=== PATIENT | male | born 1960 | race Hispanic/Latino ===

== ENCOUNTER 2021-11-24 18:49 | Emergency (ER) | payer MEDICAID ==
[2021-11-24] MEDS ORDERED: oxyCODONE 5 MG TAB PO ONE (20:18)
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
[2021-11-25] MEDS ORDERED: oxyCODONE 5 MG TAB ONE (01:40)
[2021-11-25] MEDS: oxyCODONE 5 MG TAB PO SCH ×3 (06:35→15:28)
[2021-11-25 15:51] VITALS: BP 112/67
== END 2021-11-25 15:51 ==
LOC: ED 18:49
DX: S16.1XXA Strain of muscle, fascia and tendon at neck level, initial encounter (principal); F31.9 Bipolar disorder, unspecified; I10 Essential (primary) hypertension; M19.90 Unspecified osteoarthritis, unspecified site; Z96.89 Presence of other specified functional implants; Z98.890 Other specified postprocedural states; Z87.891 Personal history of nicotine dependence; Z20.822 Contact with and (suspected) exposure to COVID-19; Y09 Assault by unspecified means; Y93.89 Activity, other specified; Y92.89 Other specified places as the place of occurrence of the external cause; Y99.8 Other external cause status
CPT/HCPCS: 72125; 99284; U0003

== ENCOUNTER 2021-11-30 12:06 | Emergency (ER) | payer MEDICAID ==
[2021-11-30] MEDS ORDERED: HALOPERIDOL LACTATE 5 MG/1 ML INJ IM ONE (12:20)
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
[2021-11-30 13:04] LABS: Hematocrit 43.4 % (35.5-45.6); Mean Corpuscular HGB Conc 32 % (32-34); Mean Corpuscular Volume 95 fl (84-94); Platelet Count 212 K/mm3 (140-440); Red Blood Count 4.57 M/mm3 (3.65-5.03); Red Cell Distribution Width 14.5 % (13.2-15.2)
[2021-11-30 13:14] LABS: Blood Urea Nitrogen 5 mg/dL (9-20); Calcium 9.5 mg/dL (8.4-10.2); Hemolysis Index 5
[2021-11-30 13:16] LABS: BUN/Creatinine Ratio 10
[2021-11-30] MEDS ORDERED: POTASSIUM CHLORIDE ER 20 MEQ TAB PO ONE (13:21)
--- NOTE | 2021-11-30 13:37 | XRay Report ---
ABDOMEN SERIES WITH ONE VIEW CHEST INDICATION / CLINICAL INFORMATION: bilious vomiting. COMPARISON: None available. FINDINGS: TUBES / LINES: None. BOWEL GAS PATTERN: No significant abnormality. FREE AIR / EXTRALUMINAL GAS: None seen. ADDITIONAL FINDINGS: No significant additional findings. LUNGS: Visualized lungs show no significant abnormality. IMPRESSION: 1. No significant abnormality. Signer Name: Wilbert Cuadra MD Signed: 11/30/2021 1:32 PM Workstation Name: [id number]
[2021-11-30] MEDS ORDERED: KETOROLAC 30 MG/1 ML INJ IM ONE (13:56)
[2021-11-30 14:27] VITALS: BP 125/84
== END 2021-11-30 14:22 | disposition home or self-care (01) ==
LOC: ED 12:06
DX: R11.2 Nausea with vomiting, unspecified (principal); R19.7 Diarrhea, unspecified; G89.4 Chronic pain syndrome; I10 Essential (primary) hypertension; M19.90 Unspecified osteoarthritis, unspecified site; R56.9 Unspecified convulsions; Z79.899 Other long term (current) drug therapy; Z98.890 Other specified postprocedural states; Z87.891 Personal history of nicotine dependence
CPT/HCPCS: 36415; 74022; 80048; 85027; 96372; 99284; J1630; J1885

== ENCOUNTER 2022-06-23 14:08 | Emergency (ER) | payer MEDICAID, OTHER ==
--- NOTE | 2022-06-23 14:27 | Event Note ---
Date: 06/23/22 Medical screening examination note, EMS documentation not available at time of chart dictation Verbal report received from emergency medical services. Patient is a 61-year-old gentleman, with a recent diagnosis of COVID-19, chronic back pain, history of suspected polysubstance abuse, presenting to the department today with a complaint of chronic pain. He is moving 4 extremities. He is protecting his airway. EMS reports unremarkable vital signs in the field. Patient makes no endorsement of homicidality or suicidality. The patient states he cannot take Tylenol because it gives him "diarrhea", and reports that it exacerbates his underlying "colitis". The patient does not have active nausea and vomiting at this time. The patient does not have diarrhea at this time. Patient advised that natural history of COVID entails prolonged symptomatology. We will obtain appropriate laboratory studies, to exclude complications from COVID, detailed history and physical to be performed by oncoming provider. At the moment, patient awake, clinically sober, does not meet criteria for 1013 hold or involuntary confinement, and appears to be stable for waiting room, pending bed availability. Vital Signs 06/23/22 14:14 Temperature 97.8 F Pulse Rate 92 H Respiratory 17 Rate Blood Pressure 128/78 [Left] O2 Sat by Pulse 98 Oximetry
--- NOTE | 2022-06-23 16:22 | Emergency Department Report ---
ED General Adult HPI - General Chief complaint: Pain General Stated complaint: BODY PAIN Time Seen by Provider: 06/23/22 16:02 Source: EMS Mode of arrival: Stretcher Limitations: No Limitations - History of Present Illness Initial comments: Patient presents to the emergency department the chief complaint of suicidal ideations. The patient stated that he stepped into traffic in an attempt to kill himself. Patient has a prior history of suicide attempts. Patient states that he was recently on hospice and has been bridged over to palliative but fátima ng this transition all his medications have been discontinued including opioids and his psychiatric medications. Patient denies any chest pain, shortness breath, or headache. -: unknown Severity scale (0 -10): 0 Consistency: constant Improves with: none Worsens with: none Associated Symptoms: denies other symptoms Treatments Prior to Arrival: none - Related Data Home Medications Medication Instructions Recorded Confirmed Last Taken Oxycodone HCl [oxyCODONE] 20 mg PO Q6H PRN 11/13/21 06/23/22 Unknown fentaNYL [Fentanyl] 75 mg TRANSDERMA Q72HR 11/13/21 06/23/22 Unknown Previous Rx's Medication Instructions Recorded Last Taken Type ARIPiprazole 5 mg PO QDAY 30 Days #30 tablet 11/17/21 Unknown Rx DULoxetine [Cymbalta] 60 mg PO BID 30 Days #60 capsule 11/17/21 Unknown Rx Gabapentin 600 mg PO Q8HR 30 Days #60 capsule 11/17/21 Unknown Rx Melatonin [Melatonin 5MG TAB] 5 mg PO QHS PRN tablet 11/17/21 Unknown Rx Venlafaxine [Effexor] 75 mg PO QDAY 30 Days #30 tablet 11/17/21 Unknown Rx traZODone [Desyrel] 50 mg PO QHS 30 Days #30 tablet 11/17/21 Unknown Rx Ondansetron [Zofran ODT TAB] 8 mg PO QID PRN #20 tab.rapdis 11/30/21 Unknown Rx Allergies Allergy/AdvReac Type Severity Reaction Status Date / Time No Known Allergies Allergy Verified 11/25/21 09:35 ED Review of Systems ROS: Stated complaint: BODY PAIN Other details as noted in HPI Comment: All other systems reviewed and negative Constitutional: denies: chills, fever Eyes: denies: eye pain, eye discharge, vision change ENT: denies: ear pain, throat pain Respiratory: denies: cough, shortness of breath, wheezing Cardiovascular: denies: chest pain, palpitations Endocrine: no symptoms reported Gastrointestinal: denies: abdominal pain, nausea, diarrhea Genitourinary: denies: urgency, dysuria Musculoskeletal: denies: back pain, joint swelling, arthralgia Skin: denies: rash, lesions Neurological: denies: headache, weakness, paresthesias Psychiatric: suicidal thoughts. denies: anxiety, depression Hematological/Lymphatic: denies: easy bleeding, easy bruising ED Past Medical Hx - Past Medical History Previous Medical History?: Yes Hx Hypertension: Yes Hx Congestive Heart Failure: No Hx Diabetes: No Hx Liver Disease: Yes (hepatitis c) Hx Arthritis: Yes Hx Seizures: Yes Hx Psychiatric Treatment: Yes ([facility] hospitalizations at [facility]) Hx Asthma: No Hx COPD: No Additional medical history: bradycardia. chronic pain. concussion. bladder emptying issues. bronchitis - Surgical History Past Surgical History?: Yes Hx Pacemaker: Yes Additional Surgical History: right knee and ankle surgery. bacterial infection throat sgx [place]. - Social History Smoking Status: Former Smoker Substance Use Type: None - Medications Home Medications: Home Medications Medication Instructions Recorded Confirmed Last Taken Type Oxycodone HCl [oxyCODONE] 20 mg PO Q6H PRN 11/13/21 06/23/22 Unknown History fentaNYL [Fentanyl] 75 mg TRANSDERMA Q72HR 11/13/21 06/23/22 Unknown History ARIPiprazole 5 mg PO QDAY 30 Days #30 tablet 11/17/21 06/23/22 Unknown Rx DULoxetine [Cymbalta] 60 mg PO BID 30 Days #60 capsule 11/17/21 06/23/22 Unknown Rx Gabapentin 600 mg PO Q8HR 30 Days #60 capsule 11/17/21 06/23/22 Unknown Rx Melatonin [Melatonin 5MG TAB] 5 mg PO QHS PRN tablet 11/17/21 06/23/22 Unknown Rx Venlafaxine [Effexor] 75 mg PO QDAY 30 Days #30 tablet 11/17/21 06/23/22 Unknown Rx traZODone [Desyrel] 50 mg PO QHS 30 Days #30 tablet 11/17/21 06/23/22 Unknown Rx Ondansetron [Zofran ODT TAB] 8 mg PO QID PRN #20 tab.rapdis 11/30/21 06/23/22 Unknown Rx ED Physical Exam - General Limitations: No Limitations General appearance: alert, in no apparent distress - Head Head exam: Present: atraumatic, normocephalic - Eye Eye exam: Present: normal appearance, PERRL, EOMI - ENT ENT exam: Present: mucous membranes moist - Neck Neck exam: Present: normal inspection - Respiratory Respiratory exam: Present: normal lung sounds bilaterally. Absent: respiratory distress - Cardiovascular Cardiovascular Exam: Present: regular rate, normal rhythm. Absent: systolic murmur, diastolic murmur, rubs, gallop - GI/Abdominal GI/Abdominal exam: Present: soft, normal bowel sounds. Absent: distended, tenderness - Rectal Rectal exam: Present: deferred - Extremities Exam Extremities exam: Present: normal inspection - Back Exam Back exam: Present: normal inspection - Neurological Exam Neurological exam: Present: alert, oriented X3, CN II-XII intact. Absent: motor sensory deficit - Psychiatric Psychiatric exam: Present: normal affect, normal mood - Skin Skin exam: Present: warm, dry, intact, normal color. Absent: rash ED Course Vital Signs 06/23/22 06/23/22 14:14 16:42 Temperature 97.8 F Pulse Rate 92 H Respiratory 17 Rate Blood Pressure 128/78 [Left] O2 Sat by Pulse 98 99 Oximetry ED Medical Decision Making - Lab Data Result diagrams: 06/23/22 16:48 06/23/22 16:50 Lab Results 06/23/22 06/23/22 06/23/22 Range/Units 16:48 16:48 16:48 WBC 6.8 (4.5-11.0) K/mm3 RBC 3.96 (3.65-5.03) M/mm3 Hgb 13.0 (11.8-15.2) gm/dl Hct 38.2 (35.5-45.6) % MCV 96 H (84-94) fl MCH 33 H (28-32) pg MCHC 34 (32-34) % RDW 14.0 (13.2-15.2) % Plt Count 220 (140-440) K/mm3 Lymph % (Auto) 38.3 H (13.4-35.0) % [place] % (Auto) 9.8 H (0.0-7.3) % Eos % (Auto) 0.8 (0.0-4.3) % Baso % (Auto) 0.9 (0.0-1.8) % Lymph # (Auto) 2.6 (1.2-5.4) K/mm3 [place] # (Auto) 0.7 (0.0-0.8) K/mm3 Eos # (Auto) 0.1 (0.0-0.4) K/mm3 Baso # (Auto) 0.1 (0.0-0.1) K/mm3 Seg Neutrophils % 50.2 (40.0-70.0) % Seg Neutrophils # 3.4 (1.8-7.7) K/mm3 Sodium (137-145) mmol/L Potassium (3.6-5.0) mmol/L Chloride (98-107) mmol/L Carbon Dioxide (22-30) mmol/L Anion Gap mmol/L BUN (9-20) mg/dL Creatinine (0.8-1.3) mg/dL Estimated GFR ml/min BUN/Creatinine Ratio % Glucose (75-100) mg/dL Calcium (8.4-10.2) mg/dL Urine Color (Yellow) Urine Turbidity (Clear) Specific [place]icks[place] (Man) (1.003-1.030) Ur Protein (Man) (Negative) mg/dL Ur Ketones (Man) (Negative) Ur Nitrite (Man) (Negative) Ur Reducing Substances Urine Bilirubin (Man) (Negative) Urine Ictotest Leukocyte Esterase (Man) (Negative) Urine WBC (Auto) (0.0-6.0) /HPF Urine RBC (Auto) (0.0-6.0) /HPF U Epithel Cells (Auto) (0-13.0) /HPF Urine Bacteria (Auto) (Negative) /HPF Urine RBC (Manual) (Negative) Urine Mucus /HPF Salicylates < 0.3 L (2.8-20.0) mg/dL Urine Opiates Screen Urine Methadone Screen Acetaminophen 5.0 L (10.0-30.0) ug/mL Ur Barbiturates Screen Ur Phencyclidine Scrn Ur Amphetamines Screen U Benzodiazepines Scrn Urine Cocaine Screen U Marijuana (THC) Screen Drugs of Abuse Note 06/23/22 06/23/22 06/23/22 Range/Units 16:50 Unknown Unknown WBC (4.5-11.0) K/mm3 RBC (3.65-5.03) M/mm3 Hgb (11.8-15.2) gm/dl Hct (35.5-45.6) % MCV (84-94) fl MCH (28-32) pg MCHC (32-34) % RDW (13.2-15.2) % Plt Count (140-440) K/mm3 Lymph % (Auto) (13.4-35.0) % [place] % (Auto) (0.0-7.3) % Eos % (Auto) (0.0-4.3) % Baso % (Auto) (0.0-1.8) % Lymph # (Auto) (1.2-5.4) K/mm3 [place] # (Auto) (0.0-0.8) K/mm3 Eos # (Auto) (0.0-0.4) K/mm3 Baso # (Auto) (0.0-0.1) K/mm3 Seg Neutrophils % (40.0-70.0) % Seg Neutrophils # (1.8-7.7) K/mm3 Sodium 142 (137-145) mmol/L Potassium 3.2 L (3.6-5.0) mmol/L Chloride 106.6 (98-107) mmol/L Carbon Dioxide 22 (22-30) mmol/L Anion Gap 17 mmol/L BUN 4 L (9-20) mg/dL Creatinine 0.6 L (0.8-1.3) mg/dL Estimated GFR > 60 ml/min BUN/Creatinine Ratio 7 % Glucose 116 H (75-100) mg/dL Calcium 9.6 (8.4-10.2) mg/dL Urine Color Yellow (Yellow) Urine Turbidity Cloudy (Clear) Specific [place]icks[place] (Man) 1.020 (1.003-1.030) Ur Protein (Man) 1+ (Negative) mg/dL Ur Ketones (Man) Negative (Negative) Ur Nitrite (Man) Negative (Negative) Ur Reducing Substances Not Reportable Urine Bilirubin (Man) Negative (Negative) Urine Ictotest Not Reportable Leukocyte Esterase (Man) Trace (Negative) Urine WBC (Auto) 4.0 (0.0-6.0) /HPF Urine RBC (Auto) 2.0 (0.0-6.0) /HPF U Epithel Cells (Auto) < 1.0 (0-13.0) /HPF Urine Bacteria (Auto) 1+ (Negative) /HPF Urine RBC (Manual) Negative (Negative) Urine Mucus 3+ /HPF Salicylates (2.8-20.0) mg/dL Urine Opiates Screen Presumptive negative Urine Methadone Screen Presumptive negative Acetaminophen (10.0-30.0) ug/mL Ur Barbiturates Screen Presumptive negative Ur Phencyclidine Scrn Presumptive negative Ur Amphetamines Screen Presumptive negative U Benzodiazepines Scrn Presumptive negative Urine Cocaine Screen Presumptive negative U Marijuana (THC) Screen Presumptive negative Drugs of Abuse Note Disclamer - Medical Decision Making 1013 applied Mental health evaluation done Patient will be seen by psych in the morning Critical care attestation.: If time is entered above; I have spent that time in minutes in the direct care of this critically ill patient, excluding procedure time. ED Disposition Clinical Impression: Suicidal ideations Disposition: [address] [place] [address] Is pt being admited?: No Does the pt Need Aspirin: No Condition: Stable Referrals: PRIMARY CARE, [Primary Care Provider] - 3-5 Days [facility] [Outside] - 3-5 Days
[2022-06-23 17:22] LABS: Basophils # (Auto) 0.1 K/mm3 (0.0-0.1); Basophils % (Auto) 0.9 % (0.0-1.8); Eosinophils # (Auto) 0.1 K/mm3 (0.0-0.4); Eosinophils % (Auto) 0.8 % (0.0-4.3); Hematocrit 38.2 % (35.5-45.6); Lymphocytes # (Auto) 2.6 K/mm3 (1.2-5.4); Lymphocytes % (Auto) 38.3 % (13.4-35.0); Mean Corpuscular HGB Conc 34 % (32-34); Mean Corpuscular Volume 96 fl (84-94); Monocytes # (Auto) 0.7 K/mm3 (0.0-0.8); Monocytes % (Auto) 9.8 % (0.0-7.3); Platelet Count 220 K/mm3 (140-440); Red Blood Count 3.96 M/mm3 (3.65-5.03)
[2022-06-23 17:38] LABS: Bacteria,Urine 1+ /HPF (Negative); Mucus,Urine 3+ /HPF
[2022-06-23 17:40] LABS: Color,Urine Yellow (Yellow)
[2022-06-23 17:45] LABS: Amphetamine Screen,Urine PRESUMPTIVE NEGATIVE; Benzodiazepines Screen,Urine PRESUMPTIVE NEGATIVE; Cannabinoid Screen,Urine PRESUMPTIVE NEGATIVE; Cocaine Screen,Urine PRESUMPTIVE NEGATIVE; Methadone Screen,Urine PRESUMPTIVE NEGATIVE; Opiate Screen,Urine PRESUMPTIVE NEGATIVE
[2022-06-23 17:47] LABS: BUN/Creatinine Ratio 7; Blood Urea Nitrogen 4 mg/dL (9-20); Calcium 9.6 mg/dL (8.4-10.2); Hemolysis Index 6
[2022-06-23] MEDS ORDERED: LORazepam 1 MG TAB PO ONE (19:00)
[2022-06-23] MEDS ORDERED: GABAPENTIN 300 MG CAP PO ONE (21:01)
[2022-06-24 08:38] VITALS: BP 114/68
[2022-06-24] MEDS ORDERED: MELATONIN 5 MG TAB PO PRN (11:20)
--- NOTE | 2022-06-24 11:20 | Consultation ---
History of Present Illness - Reason for Consult Consult date: 06/24/22 Reason for consult: depression, suicidal thoughts - History of Present Psychiatric Illness The patient was seen today. He is from a local shelter. The patient says he is depressed and feeling suicidal. He says he's been off his zoloft. The patient says he has a plan to cut himself and open his veins with a razor blade. The patient says he is in chronic pain.. PAST PSYCHIATRIC HISTORY: Diagnoses: Bipolar, schizophrenia, anxiety Suicide attempts or Self-harm behavior: Yes Prior psychiatric hospitalizations: Yes Substance Abuse history: Denies Previous psychiatric medications tried: zoloft Outpatient treatment: yes PAST MEDICAL HISTORY: unknown Family Psychiatric History: None reported or documented SOCIAL HISTORY Marital Status: Living Arrangements: [employer] living Employment Status: Retired Education: History of Abuse:denies Legal History: Denies REVIEW OF SYSTEMS Constitutional: Negative for weight loss ENT: Negative for stridor Respiratory: Negative for cough or hemoptysis All other systems reviewed and are negative MENTAL STATUS EXAMINATION General Appearance and Behavior: Age appropriate, good hygiene, wearing appropriate clothes. polite, cooperative Cooperation: Cooperative Psychomotor Behavior: Psychomotor normal Mood: Depression Affect and affective range: Congruent with stated mood Thought Process: Illogical Thought Content: SI Speech: Normal Suicidal Ideation: Yes Homicidal Ideation: Denies Hallucinations: Packing Checker Delusions: None elicited Impulse Control: Limited Insight and Judgment: Limited insight and fair judgment Memory: Limited Attention: distracted Orientation: a/o x 3 Assessment (1) Bipolar Disorder Treatment Plan 1013 Restarted Zoloft 50mg po daily Restarted home meds Medical: per primary Sitter: Defer to primary Disposition: Recommend acute psychiatric inpatient treatment Will follow. Thanks Case staffed with Dr. Martin Medications and Allergies Allergies Allergy/AdvReac Type Severity Reaction Status Date / Time No Known Allergies Allergy Verified 11/25/21 09:35 Home Medications Medication Instructions Recorded Confirmed Last Taken Type Oxycodone HCl [oxyCODONE] 20 mg PO Q6H PRN 11/13/21 06/23/22 Unknown History fentaNYL [Fentanyl] 75 mg TRANSDERMA Q72HR 11/13/21 06/23/22 Unknown History ARIPiprazole 5 mg PO QDAY 30 Days #30 tablet 11/17/21 06/23/22 Unknown Rx DULoxetine [Cymbalta] 60 mg PO BID 30 Days #60 capsule 11/17/21 06/23/22 Unknown Rx Gabapentin 600 mg PO Q8HR 30 Days #60 capsule 11/17/21 06/23/22 Unknown Rx Melatonin [Melatonin 5MG TAB] 5 mg PO QHS PRN tablet 11/17/21 06/23/22 Unknown Rx Venlafaxine [Effexor] 75 mg PO QDAY 30 Days #30 tablet 11/17/21 06/23/22 Unknown Rx traZODone [Desyrel] 50 mg PO QHS 30 Days #30 tablet 11/17/21 06/23/22 Unknown Rx Ondansetron [Zofran ODT TAB] 8 mg PO QID PRN #20 tab.rapdis 11/30/21 06/23/22 Unknown Rx Mental Status Exam - Vital signs Last Vital Signs Temp 97.6 F 06/24/22 08:37 Pulse 74 06/24/22 08:37 Resp 16 06/24/22 08:37 BP 114/68 06/24/22 08:37 Pulse Ox 99 06/24/22 08:37 Results Result Diagrams: 06/23/22 16:48 06/23/22 16:50 Abnormal lab results 06/23/22 06/23/22 06/23/22 Range/Units 16:48 16:48 16:48 MCV 96 H (84-94) fl MCH 33 H (28-32) pg Lymph % (Auto) 38.3 H (13.4-35.0) % [place] % (Auto) 9.8 H (0.0-7.3) % Potassium (3.6-5.0) mmol/L BUN (9-20) mg/dL Creatinine (0.8-1.3) mg/dL Glucose (75-100) mg/dL Salicylates < 0.3 L (2.8-20.0) mg/dL Acetaminophen 5.0 L (10.0-30.0) ug/mL 06/23/22 Range/Units 16:50 MCV (84-94) fl MCH (28-32) pg Lymph % (Auto) (13.4-35.0) % [place] % (Auto) (0.0-7.3) % Potassium 3.2 L (3.6-5.0) mmol/L BUN 4 L (9-20) mg/dL Creatinine 0.6 L (0.8-1.3) mg/dL Glucose 116 H (75-100) mg/dL Salicylates (2.8-20.0) mg/dL Acetaminophen (10.0-30.0) ug/mL All other labs normal.
[2022-06-24] MEDS ORDERED: DULoxetine 30 MG CAP PO SCH (12:00)
[2022-06-24] MEDS ORDERED: SERTRALINE 50 MG TAB PO SCH (12:00)
[2022-06-24] MEDS ORDERED: ARIPiprazole 5 MG TAB PO SCH (12:00)
[2022-06-24] MEDS ORDERED: GABAPENTIN 300 MG CAP PO SCH (14:00)
== END 2022-06-24 17:52 | disposition home or self-care (01) ==
LOC: ED 14:08 → EEVIPCON 14:08 → ED 06-24 17:52
DX: R45.851 Suicidal ideations (principal)
CPT/HCPCS: 36415; 80048; 80307; 80320; 81001; 85025; 99283; G0480; U0003

== ENCOUNTER 2022-06-24 17:02 | Inpatient (IN) | payer MEDICAID ==
--- NOTE | 2022-06-25 08:24 | History and Physical Report ---
GP History & Physical - History of Present Illness Date of admission: 06/25/22 Date of Examination: 06/25/22 Reason for Admission: Danger to self, Danger to others, Failure of Outpatient Treatment History of Present Illness: The patient is a 61 year old male with history of Depression, Anxiety, PTSD, and Insomnia who was admitted via the ED for suicidal ideation. The patient was seen today. He reports ongoing depression " I have been depressed all my life, I worry about my all the time." He states stressors such as "chronic pain and living situation." The patient states he is followed by hospice team. He states admits to having intermittent auditory hallucinations but denies suicidal/homicidal ideation and denies visual hallucinations. PAST PSYCHIATRIC HISTORY: Diagnoses: Depression, Anxiety, PTSD, Insomnia Suicide attempts or Self-harm behavior:Yes Prior psychiatric hospitalizations: Yes Substance Abuse history: marijuana Previous psychiatric medications tried: Unable to recall Outpatient treatment: Denies PAST MEDICAL HISTORY: Family Psychiatric History: None reported or documented SOCIAL HISTORY Marital Status: Living Arrangements: senior care Employment Status: Unemployed Access to guns/weapons: Denies Education: GED History of Abuse:Denies Legal History: Denies REVIEW OF SYSTEMS Constitutional: Negative for weight loss ENT: Negative for stridor Respiratory: Negative for cough or hemoptysis All other systems reviewed and are negative MENTAL STATUS EXAMINATION General Appearance and Behavior: Age appropriate, wearing appropriate clothes, cooperative, polite with questioning, good eye contact Cooperation: cooperative Psychomotor Behavior: Psychomotor normal Mood: depressed Affect and affective range: congruent with stated affect Thought Process: Goal directed Thought Content: Reality oriented Speech: Normal volume, Regular rate and rhythm Suicidal Ideation: Denies Homicidal Ideation: Denies Hallucination: Intermittent Auditory Delusions: None Impulse Control: Limited Insight and Judgment: Limited Memory: Intact Attention: attentive Orientation: Alert and oriented Diagnosis: Schizophrenia Disorder Treatment Plan Patient admitted for inpatient psychiatric evaluation, medication adjustment and close monitoring The patient's behavior, mood, sleep and appetite will be closely monitored. Patient enrolled in individual and group therapeutic sessions and encouraged to attend. Patient provided with a safe and structured environment. Patient's physical health needs will be addressed by the Hospitalist. Hospitalist Consulted Labs including CBC, CMP, Lipid profile and Hemoglobin A1C levels ordered for baseline reference Social Assessment will be completed and the Channel Rougher will work with patient and family to ensure a suitable and safe disposition Medication adjustment will be made as clinically indicated Continue home meds Usual Wellness Jain/Preservation: - Start Trazodone 50 mg po QHS & 50 mg po QHS PRN between 10 PM & 2 AM for insomnia - Start Melatonin 5 mg po QHS to promote circadian rhythm The patient agreed on the treatment plan, understood the risk, benefit, alternative treatment, potential consequence of no treatment, and gave informed consent. Estimated days: 7 Post hospital care: primary care provider, psychiatric provider Case staffed with Dr. Martin Legal Status: Voluntary Reaction to Hospitalization: Accepting Medications and Allergies Allergies Allergy/AdvReac Type Severity Reaction Status Date / Time No Known Allergies Allergy Verified 11/25/21 09:35 Home Medications Medication Instructions Recorded Confirmed Last Taken Type Oxycodone HCl [oxyCODONE] 20 mg PO Q6H PRN 11/13/21 06/23/22 Unknown History fentaNYL [Fentanyl] 75 mg TRANSDERMA Q72HR 11/13/21 06/23/22 Unknown History ARIPiprazole 5 mg PO QDAY 30 Days #30 tablet 11/17/21 06/23/22 Unknown Rx DULoxetine [Cymbalta] 60 mg PO BID 30 Days #60 capsule 11/17/21 06/23/22 Unknown Rx Gabapentin 600 mg PO Q8HR 30 Days #60 capsule 11/17/21 06/23/22 Unknown Rx Melatonin [Melatonin 5MG TAB] 5 mg PO QHS PRN tablet 11/17/21 06/23/22 Unknown Rx Venlafaxine [Effexor] 75 mg PO QDAY 30 Days #30 tablet 11/17/21 06/23/22 Unknown Rx traZODone [Desyrel] 50 mg PO QHS 30 Days #30 tablet 11/17/21 06/23/22 Unknown Rx Ondansetron [Zofran ODT TAB] 8 mg PO QID PRN #20 tab.rapdis 11/30/21 06/23/22 Unknown Rx Results - Results Labs/Vitals: Last Vital Signs Temp 98.7 F 06/24/22 20:21 Pulse 89 06/24/22 20:21 Resp 18 06/24/22 20:21 BP 122/87 06/24/22 20:21 Pulse Ox 95 06/24/22 20:21 Physical Examination - Constitutional Vitals: Vital Signs Temp Pulse Resp BP Pulse Ox 98.7 F 89 18 122/87 95 06/24/22 20:21 06/24/22 20:21 06/24/22 20:21 06/24/22 20:21 06/24/22 20:21 Temperature -Last 24 Hours Temperature 98.7 F Mental Status Exam - Vital signs Last Vital Signs Temp 98.7 F 06/24/22 20:21 Pulse 89 06/24/22 20:21 Resp 18 06/24/22 20:21 BP 122/87 06/24/22 20:21 Pulse Ox 95 06/24/22 20:21 Physician Certification - Certification Statement Physician Certification Statement: This is an acknowledgement statement that FERMIN SPENCE is a 61 year old M who requires inpatient psychiatric admission for treatment which could reasonably be expected to improve the patient's condition for Estimated period of time patient will need to remain in the hospital: [ ] Plan for post-hospital care: [ ]
--- NOTE | 2022-06-25 09:42 | Consultation ---
Medications and Allergies Allergies Allergy/AdvReac Type Severity Reaction Status Date / Time No Known Allergies Allergy Verified 11/25/21 09:35 Home Medications Medication Instructions Recorded Confirmed Last Taken Type Oxycodone HCl [oxyCODONE] 20 mg PO Q6H PRN 11/13/21 06/23/22 Unknown History fentaNYL [Fentanyl] 75 mg TRANSDERMA Q72HR 11/13/21 06/23/22 Unknown History ARIPiprazole 5 mg PO QDAY 30 Days #30 tablet 11/17/21 06/23/22 Unknown Rx DULoxetine [Cymbalta] 60 mg PO BID 30 Days #60 capsule 11/17/21 06/23/22 Unknown Rx Gabapentin 600 mg PO Q8HR 30 Days #60 capsule 11/17/21 06/23/22 Unknown Rx Melatonin [Melatonin 5MG TAB] 5 mg PO QHS PRN tablet 11/17/21 06/23/22 Unknown Rx Venlafaxine [Effexor] 75 mg PO QDAY 30 Days #30 tablet 11/17/21 06/23/22 Unknown Rx traZODone [Desyrel] 50 mg PO QHS 30 Days #30 tablet 11/17/21 06/23/22 Unknown Rx Ondansetron [Zofran ODT TAB] 8 mg PO QID PRN #20 tab.rapdis 11/30/21 06/23/22 Unknown Rx Exam - Constitutional Vitals: Temp Pulse Resp BP Pulse Ox 98.7 F 89 18 122/87 95 06/24/22 20:21 06/24/22 20:21 06/24/22 20:21 06/24/22 20:21 06/24/22 20:21
[2022-06-25] MEDS ORDERED: NON-FORMULARY EACH (Oxycodone Hcl [Oxycodone] 20 MG Tablet) PO PRN (09:43)
[2022-06-25 10:30] LABS: Basophils # (Auto) 0.1 K/mm3 (0.0-0.1); Basophils % (Auto) 1.1 % (0.0-1.8); Eosinophils # (Auto) 0.1 K/mm3 (0.0-0.4); Hematocrit 36.7 % (35.5-45.6); Hemoglobin 12.6 gm/dl (11.8-15.2); Lymphocytes % (Auto) 46.1 % (13.4-35.0); Mean Corpuscular HGB Conc 34 % (32-34); Mean Corpuscular Volume 94 fl (84-94); Monocytes # (Auto) 0.6 K/mm3 (0.0-0.8); Platelet Count 217 K/mm3 (140-440); Red Cell Distribution Width 14.5 % (13.2-15.2)
[2022-06-25 10:58] LABS: Alanine Aminotransferase 21 units/L (7-56); Albumin 4.2 g/dL (3.9-5); Blood Urea Nitrogen 7 mg/dL (9-20); Calcium 9.5 mg/dL (8.4-10.2); Chol/HDL Ratio 2.74 %; HDL Cholesterol 59 mg/dL (40-59); Hemolysis Index 6; LDL Cholesterol,Direct 95 mg/dL (50-130)
[2022-06-25 11:04] LABS: BUN/Creatinine Ratio 12
[2022-06-25] MEDS ORDERED: ARIPiprazole 5 MG TAB PO SCH (12:00)
[2022-06-25] MEDS ORDERED: DULoxetine 30 MG CAP PO SCH (12:00)
[2022-06-25] MEDS: GABAPENTIN 300 MG CAP PO SCH ×3 (12:52→21:00)
[2022-06-25] MEDS: oxyCODONE 5 MG TAB PO PRN ×2 (12:53→21:54)
--- NOTE | 2022-06-25 16:22 | Consultation ---
History of Present Illness - Reason for Consult Consult date: 06/25/22 Medical Management Requesting physician: GIANNA ASENCIO - History of Present Illness 61 YO Male with Vascular Dementia with Behavioral Disturbance, Cerebral Atherosclerosis, Bipolar Disorder, SSS S/P Pacemaker placement, CVA, CPS, Opioid Dependence, OA, Malnutrition admitted to [facility] for psychiatric stabilization. Consult placed by Dr. Asencio for medical management. Pt seen and evaluated in the recreation room. Patient denies fever, chills, chest pain, palpitation, productive cough, skin rash, recent ill contacts, or known exposure to COVID-19. No reported nursing events. Patient appears to be at baseline level of cognition and function. Past History Past Medical History: stroke, other (See HPI) Past Surgical History: Other (Pacemaker placement, back surgery) Social history: single. denies: smoking, alcohol abuse Family history: no significant family history, other (Reviewed) Past History Past Medical History: stroke, other (See HPI) Past Surgical History: Other (Pacemaker placement) Social history: single. denies: smoking, alcohol abuse Family history: hypertension Medications and Allergies Allergies Allergy/AdvReac Type Severity Reaction Status Date / Time No Known Allergies Allergy Verified 11/25/21 09:35 Home Medications Medication Instructions Recorded Confirmed Last Taken Type Oxycodone HCl [oxyCODONE] 20 mg PO Q6H PRN 11/13/21 06/26/22 Unknown History fentaNYL [Fentanyl] 75 mg TRANSDERMA Q72HR 11/13/21 06/26/22 Unknown History ARIPiprazole 5 mg PO QDAY 30 Days #30 tablet 11/17/21 06/26/22 Unknown Rx DULoxetine [Cymbalta] 60 mg PO BID 30 Days #60 capsule 11/17/21 06/26/22 Unknown Rx Gabapentin 600 mg PO Q8HR 30 Days #60 capsule 11/17/21 06/26/22 Unknown Rx Melatonin [Melatonin 5MG TAB] 5 mg PO QHS PRN tablet 11/17/21 06/26/22 Unknown Rx Venlafaxine [Effexor] 75 mg PO QDAY 30 Days #30 tablet 11/17/21 06/26/22 Unknown Rx traZODone [Desyrel] 50 mg PO QHS 30 Days #30 tablet 11/17/21 06/26/22 Unknown Rx Ondansetron [Zofran ODT TAB] 8 mg PO QID PRN #20 tab.rapdis 11/30/21 06/26/22 Unknown Rx Active Meds: Active Medications Aripiprazole (Aripiprazole 5 Mg Tab) 5 mg PO QDAY [facility] Last Admin: 06/25/22 12:53 Dose: 5 mg Gabapentin (Gabapentin 300 Mg Cap) 600 mg PO Q8HR [facility] Last Admin: 06/25/22 12:52 Dose: 600 mg Melatonin (Melatonin 5 Mg Tab) 5 mg PO QHS PRN PRN Reason: Sleep Oxycodone HCl (Oxycodone 5 Mg Tab) 20 mg PO Q6H PRN PRN Reason: Pain, Moderate (4-6) Last Admin: 06/25/22 12:53 Dose: 20 mg Trazodone HCl (Trazodone 50 Mg Tab) 50 mg PO QHS [facility] Review of Systems Constitutional: no weight loss, no weight gain, no fever, no chills Ears, nose, mouth and throat: no ear pain, no ear discharge, no decreased hearing, no nose pain, no nasal congestion, no sinus pressure Cardiovascular: no chest pain, no orthopnea, no palpitations, no edema, no lightheadedness Respiratory: no cough, no excessive sputum, no hemoptysis, no dyspnea on exer tion Gastrointestinal: no abdominal pain, no nausea, no vomiting, no change in bowel habits Genitourinary Male: no dysuria, no hematuria, no flank pain, no discharge, no urinary frequency, no urinary hesitancy Rectal: no pain, no incontinence, no bleeding Musculoskeletal: no neck stiffness, no shooting arm pain, no shooting leg pain Integumentary: no rash, no pruritis, no redness, no sores, no wounds Neurological: no head injury, no transient paralysis, no weakness Psychiatric: depression, irritability, mood swings Endocrine: no cold intolerance, no heat intolerance, no polydipsia, no flushing Hematologic/Lymphatic: no easy bruising Allergic/Immunologic: no anaphylaxis, no angioedema Exam - Constitutional Vitals: Temp Pulse Resp BP Pulse Ox 98.2 F 78 20 112/78 98 06/25/22 08:46 06/25/22 08:46 06/25/22 08:46 06/25/22 08:46 06/25/22 08:46 General appearance: Present: cachectic - EENT Eyes: Present: PERRL ENT: hearing intact, clear oral mucosa - Neck Neck: Present: supple, normal ROM - Respiratory Respiratory effort: normal Respiratory: bilateral: CTA - Cardiovascular Heart Sounds: Present: S1 & S2. Absent: rub, click - Extremities Extremities: pulses symmetrical, No edema Peripheral Pulses: within normal limits - Abdominal General gastrointestinal: Present: soft, non-tender, non-distended, normal bowel sounds Male genitourinary: Present: normal - Integumentary Integumentary: Present: clear, warm, dry - Musculoskeletal Musculoskeletal: gait normal, strength equal bilaterally - Psychiatric Psychiatric: appropriate mood/affect, intact judgment & insight - Neurologic Neurologic: CNII-XII intact, moves all extremities Results - Labs CBC & Chem 7: 06/24/22 10:25 06/24/22 10:25 Labs: Abnormal lab results 06/24/22 06/24/22 Range/Units 10:25 10:25 Lymph % (Auto) 46.1 H (13.4-35.0) % [place] % (Auto) 9.0 H (0.0-7.3) % Carbon Dioxide 19 L (22-30) mmol/L BUN 7 L (9-20) mg/dL Creatinine 0.6 L (0.8-1.3) mg/dL Glucose 107 H (75-100) mg/dL Total Protein 6.2 L (6.3-8.2) g/dL Assessment and Plan - Patient Problems (1) Bipolar disorder Current Visit: No Status: Acute Plan to address problem: Continue medical management, supportive care. (2) Chronic pain syndrome Current Visit: No Status: Acute Plan to address problem: Continue medical management, supportive care. Outpatient follow-up with pain management team. (3) Opioid dependence Current Visit: No Status: Acute Qualifiers: Complication of substance-induced condition: uncomplicated Plan to address problem: Continue medical management, neurochecks, pain control, supportive care. Verbal prompting, verbal redirection. (4) Osteoarthritis Current Visit: Yes Status: Acute Plan to address problem: Supportive care, continue medical management. NSAID therapy as clinically indicated. (5) Malnutrition Current Visit: Yes Status: Acute Qualifiers: Protein-calorie malnutrition severity: moderate Plan to address problem: Is increased protein intake, dietary supplementation. (6) Advance care planning Current Visit: No Status: Acute Plan to address problem: Disease education conducted, care plan discussed, diagnoses discussed, prognosis discussed, patient is full code. Patient acknowledges understanding and agreement with care plan, +30 minutes. (7) Preventative health care Current Visit: Yes Status: Acute Plan to address problem: Patient counseled regarding increase protein intake, dietary supplementation. Patient counseled regarding outpatient follow-up with primary care physician for all age and risk factor appropriate screening test. An outpatient follow-up with pain management service.
[2022-06-25] MEDS ORDERED: ONDANSETRON 8 MG ODT TAB PO PRN (16:26)
[2022-06-25] MEDS ORDERED: fentaNYL 12 MCG/HR PATCH 72HR TD SCH (17:00)
[2022-06-25] MEDS: traZODone 50 MG TAB PO SCH (21:00)
[2022-06-25] MEDS: MELATONIN 5 MG TAB PO PRN (21:00)
[2022-06-26] MEDS: oxyCODONE 5 MG TAB PO PRN ×3 (03:50→17:05)
[2022-06-26] MEDS: GABAPENTIN 300 MG CAP PO SCH ×3 (05:49→21:15)
--- NOTE | 2022-06-26 09:36 | Progress Note ---
Subjective Date of service: 06/26/22 Subjective Comment: 06/26: The patient was seen this morning. He continues to endorse depression and racing thoughts. The patient denies any current suicidal/homicidal ideation and denies hallucinations. REVIEW OF SYSTEMS Constitutional: Negative for weight loss ENT: Negative for stridor Respiratory: Negative for cough or hemoptysis All other systems reviewed and are negative MENTAL STATUS EXAMINATION General Appearance and Behavior: Age appropriate, wearing appropriate clothes, cooperative, polite with questioning, good eye contact Cooperation: cooperative Psychomotor Behavior: Psychomotor normal Mood: depressed Affect and affective range: congruent with stated affect Thought Process: racing thoughts Thought Content:Reality oriented Speech: Normal volume, Regular rate and rhythm Suicidal Ideation: Denies Homicidal Ideation: Denies Hallucination:Denies Delusions: None Impulse Control: Limited Insight and Judgment: Limited Memory: Intact Attention: attentive Orientation: Alert and oriented Diagnosis: Schizophrenia Disorder Treatment Plan Patient admitted for inpatient psychiatric evaluation, medication adjustment and close monitoring The patient's behavior, mood, sleep and appetite will be closely monitored. Patient enrolled in individual and group therapeutic sessions and encouraged to attend. Patient provided with a safe and structured environment. Patient's physical health needs will be addressed by the Hospitalist. Hospitalist Consulted Labs including CBC, CMP, Lipid profile and Hemoglobin A1C levels ordered for baseline reference Social Assessment will be completed and the Cash Posting Representative will work with patient and family to ensure a suitable and safe disposition Medication adjustment will be made as clinically indicated Continue home meds Increased Abilify to 10mg po daily Start Sertaline 25mg po daily Start Vistaril 25mg po Q6hs PRN Usual Wellness [employer]/Preservation: - Start Trazodone 50 mg po QHS & 50 mg po QHS PRN between 10 PM & 2 AM for insomnia - Start Melatonin 5 mg po QHS to promote circadian rhythm The patient agreed on the treatment plan, understood the risk, benefit, alternative treatment, potential consequence of no treatment, and gave informed consent. Estimated days: 7 Post hospital care: primary care provider, psychiatric provider Case staffed with Dr. Martin Legal Status: Voluntary Reaction to Hospitalization: Accepting Medications and Allergies Medications and Allergies Allergies Allergy/AdvReac Type Severity Reaction Status Date / Time No Known Allergies Allergy Verified 11/25/21 09:35 Home Medications Medication Instructions Recorded Confirmed Last Taken Type Oxycodone HCl [oxyCODONE] 20 mg PO Q6H PRN 11/13/21 06/26/22 Unknown History fentaNYL [Fentanyl] 75 mg TRANSDERMA Q72HR 11/13/21 06/26/22 Unknown History ARIPiprazole 5 mg PO QDAY 30 Days #30 tablet 11/17/21 06/26/22 Unknown Rx DULoxetine [Cymbalta] 60 mg PO BID 30 Days #60 capsule 11/17/21 06/26/22 Unknown Rx Gabapentin 600 mg PO Q8HR 30 Days #60 capsule 11/17/21 06/26/22 Unknown Rx Melatonin [Melatonin 5MG TAB] 5 mg PO QHS PRN tablet 11/17/21 06/26/22 Unknown Rx Venlafaxine [Effexor] 75 mg PO QDAY 30 Days #30 tablet 11/17/21 06/26/22 Unknown Rx traZODone [Desyrel] 50 mg PO QHS 30 Days #30 tablet 11/17/21 06/26/22 Unknown Rx Ondansetron [Zofran ODT TAB] 8 mg PO QID PRN #20 tab.rapdis 11/30/21 06/26/22 U nknown Rx Active Meds: Active Medications Aripiprazole (Aripiprazole 5 Mg Tab) 5 mg PO QDAY [facility] Last Admin: 06/25/22 12:53 Dose: 5 mg Fentanyl (Fentanyl 12 Mcg/Hr Patch 72hr) 1 applic TD Q72HR [facility] Gabapentin (Gabapentin 300 Mg Cap) 600 mg PO Q8HR [facility] Last Admin: 06/26/22 05:49 Dose: 600 mg Melatonin (Melatonin 5 Mg Tab) 5 mg PO QHS PRN PRN Reason: Sleep Last Admin: 06/25/22 21:00 Dose: 5 mg Ondansetron HCl (Ondansetron 8 Mg Odt Tab) 8 mg PO QID PRN PRN Reason: Nausea Oxycodone HCl (Oxycodone 5 Mg Tab) 20 mg PO Q6H PRN PRN Reason: Pain, Moderate (4-6) Last Admin: 06/26/22 03:50 Dose: 20 mg Trazodone HCl (Trazodone 50 Mg Tab) 50 mg PO QHS [facility] Last Admin: 06/25/22 21:00 Dose: 50 mg Results - Results Labs/Vitals: Laboratory Last Values WBC 6.5 K/mm3 (4.5-11.0) 06/24/22 10:25 RBC 3.90 M/mm3 (3.65-5.03) 06/24/22 10:25 Hgb 12.6 gm/dl (11.8-15.2) 06/24/22 10:25 Hct 36.7 % (35.5-45.6) 06/24/22 10:25 MCV 94 fl (84-94) 06/24/22 10:25 MCH 32 pg (28-32) 06/24/22 10:25 MCHC 34 % (32-34) 06/24/22 10:25 RDW 14.5 % (13.2-15.2) 06/24/22 10:25 Plt Count 217 K/mm3 (140-440) 06/24/22 10:25 Lymph % (Auto) 46.1 % (13.4-35.0) H 06/24/22 10:25 [place] % (Auto) 9.0 % (0.0-7.3) H 06/24/22 10:25 Eos % (Auto) 1.0 % (0.0-4.3) 06/24/22 10:25 Baso % (Auto) 1.1 % (0.0-1.8) 06/24/22 10:25 Lymph # (Auto) 3.0 K/mm3 (1.2-5.4) 06/24/22 10:25 [place] # (Auto) 0.6 K/mm3 (0.0-0.8) 06/24/22 10:25 Eos # (Auto) 0.1 K/mm3 (0.0-0.4) 06/24/22 10:25 Baso # (Auto) 0.1 K/mm3 (0.0-0.1) 06/24/22 10:25 Seg Neutrophils % 42.8 % (40.0-70.0) 06/24/22 10:25 Seg Neutrophils # 2.8 K/mm3 (1.8-7.7) 06/24/22 10:25 Sodium 139 mmol/L (137-145) 06/24/22 10:25 Potassium 3.6 mmol/L (3.6-5.0) 06/24/22 10:25 Chloride 106.0 mmol/L (98-107) 06/24/22 10:25 Carbon Dioxide 19 mmol/L (22-30) L 06/24/22 10:25 Anion Gap 18 mmol/L 06/24/22 10:25 BUN 7 mg/dL (9-20) L 06/24/22 10:25 Creatinine 0.6 mg/dL (0.8-1.3) L 06/24/22 10:25 Estimated GFR > 60 ml/min 06/24/22 10:25 BUN/Creatinine Ratio 12 % 06/24/22 10:25 Glucose 107 mg/dL (75-100) H 06/24/22 10:25 Hemoglobin A1c 4.9 % (4-6) 06/24/22 10:25 Calcium 9.5 mg/dL (8.4-10.2) 06/24/22 10:25 Total Bilirubin 0.40 mg/dL (0.1-1.2) 06/24/22 10:25 AST 14 units/L (5-40) 06/24/22 10:25 ALT 21 units/L (7-56) 06/24/22 10:25 Alkaline Phosphatase 66 units/L (35-129) 06/24/22 10:25 Troponin T < 0.010 ng/mL (0.00-0.029) 06/25/22 09:43 Total Protein 6.2 g/dL (6.3-8.2) L 06/24/22 10:25 Albumin 4.2 g/dL (3.9-5) 06/24/22 10:25 Albumin/Globulin Ratio 2.1 % 06/24/22 10:25 Triglycerides 63 mg/dL (2-149) 06/24/22 10:25 Cholesterol 162 mg/dL (50-199) 06/24/22 10:25 LDL Cholesterol Direct 95 mg/dL (50-130) 06/24/22 10:25 HDL Cholesterol 59 mg/dL (40-59) 06/24/22 10:25 Cholesterol/HDL Ratio 2.74 % 06/24/22 10:25 TSH 0.470 mlU/mL (0.270-4.200) 06/24/22 10:25 Last Vital Signs Temp 98.1 F 06/26/22 07:38 Pulse 64 06/26/22 07:38 Resp 16 06/26/22 07:38 BP 102/67 09/03/22 07:38 Pulse Ox 97 06/26/22 07:38
[2022-06-26] MEDS ORDERED: hydrOXYzine PAMOATE 25 MG CAP PO PRN (09:37)
[2022-06-26] MEDS: SERTRALINE 25 MG TAB PO SCH (09:54)
[2022-06-26] MEDS: ARIPiprazole 10 MG TAB PO SCH (09:54)
[2022-06-26] MEDS: MELATONIN 5 MG TAB PO PRN (21:15)
[2022-06-26] MEDS: traZODone 50 MG TAB PO SCH (21:15)
[2022-06-27] MEDS: oxyCODONE 5 MG TAB PO PRN ×4 (00:39→21:07)
[2022-06-27] MEDS: GABAPENTIN 300 MG CAP PO SCH ×3 (06:40→21:06)
--- NOTE | 2022-06-27 09:03 | Progress Note ---
Subjective Date of service: 06/27/22 Subjective Comment: 06/27:The patient was seen this morning. He states he is doing alright but continues to endorse depression. He reports sleep and appetite as good. The patient denies any current suicidal/homicidal ideation and denies hallucinations. 06/26: The patient was seen this morning. He continues to endorse depression and racing thoughts. The patient denies any current suicidal/homicidal ideation and denies hallucinations. REVIEW OF SYSTEMS Constitutional: Negative for weight loss ENT: Negative for stridor Respiratory: Negative for cough or hemoptysis All other systems reviewed and are negative MENTAL STATUS EXAMINATION General Appearance and Behavior: Age appropriate, wearing appropriate clothes, cooperative, polite with questioning, good eye contact Cooperation: cooperative Psychomotor Behavior: Psychomotor normal Mood: depressed Affect and affective range: congruent with stated affect Thought Process: racing thoughts Thought Content:Reality oriented Speech: Normal volume, Regular rate and rhythm Suicidal Ideation: Denies Homicidal Ideation: Denies Hallucination:Denies Delusions: None Impulse Control: Limited Insight and Judgment: Limited Memory: Intact Attention: attentive Orientation: Alert and oriented Diagnosis: Schizophrenia Disorder Treatment Plan Patient admitted for inpatient psychiatric evaluation, medication adjustment and close monitoring The patient's behavior, mood, sleep and appetite will be closely monitored. Patient enrolled in individual and group therapeutic sessions and encouraged to attend. Patient provided with a safe and structured environment. Patient's physical health needs will be addressed by the Hospitalist. Hospitalist Consulted Labs including CBC, CMP, Lipid profile and Hemoglobin A1C levels ordered for baseline reference Social Assessment will be completed and the Kettle Cook will work with patient and family to ensure a suitable and safe disposition Medication adjustment will be made as clinically indicated Continue home meds Increased Abilify to 10mg po daily Start Sertaline 25mg po daily Start Vistaril 25mg po Q6hs PRN Usual Wellness [place]/Preservation: - Start Trazodone 50 mg po QHS & 50 mg po QHS PRN between 10 PM & 2 AM for insomnia - Start Melatonin 5 mg po QHS to promote circadian rhythm The patient agreed on the treatment plan, understood the risk, benefit, alternative treatment, potential consequence of no treatment, and gave informed consent. Estimated days: 7 Post hospital care: primary care provider, psychiatric provider Case staffed with Dr. Martin Legal Status: Voluntary Reaction to Hospitalization: Accepting Medications and Allergies Medications and Allergies Allergies Allergy/AdvReac Type Severity Reaction Status Date / Time No Known Allergies Allergy Verified 11/25/21 09:35 Home Medications Medication Instructions Recorded Confirmed Last Taken Type Oxycodone HCl [oxyCODONE] 20 mg PO Q6H PRN 11/13/21 06/26/22 Unknown History fentaNYL [Fentanyl] 75 mg TRANSDERMA Q72HR 11/13/21 06/26/22 Unknown History ARIPiprazole 5 mg PO QDAY 30 Days #30 tablet 11/17/21 06/26/22 Unknown Rx DULoxetine [Cymbalta] 60 mg PO BID 30 Days #60 capsule 11/17/21 06/26/22 Unknown Rx Gabapentin 600 mg PO Q8HR 30 Days #60 capsule 11/17/21 06/26/22 Unknown Rx Melatonin [Melatonin 5MG TAB] 5 mg PO QHS PRN tablet 11/17/21 06/26/22 Unknown Rx Venlafaxine [Effexor] 75 mg PO QDAY 30 Days #30 tablet 11/17/21 06/26/22 Unknown Rx traZODone [Desyrel] 50 mg PO QHS 30 Days #30 tablet 11/17/21 06/26/22 Unknown Rx Ondansetron [Zofran ODT TAB] 8 mg PO QID PRN #20 tab.rapdis 11/30/21 06/26/22 Unknown Rx Active Meds: Active Medications Aripiprazole (Aripiprazole 10 Mg Tab) 10 mg PO QDAY [facility] Last Admin: 06/26/22 09:54 Dose: 10 mg Fentanyl (Fentanyl 12 Mcg/Hr Patch 72hr) 1 applic TD Q72HR [facility] Gabapentin (Gabapentin 300 Mg Cap) 600 mg PO Q8HR [facility] Last Admin: 06/27/22 06:40 Dose: 600 mg Hydroxyzine Pamoate (Hydroxyzine Pamoate 25 Mg Cap) 25 mg PO Q6H PRN PRN Reason: Anxiety Melatonin (Melatonin 5 Mg Tab) 5 mg PO QHS PRN PRN Reason: Sleep Last Admin: 06/26/22 21:15 Dose: 5 mg Ondansetron HCl (Ondansetron 8 Mg Odt Tab) 8 mg PO QID PRN PRN Reason: Nausea Oxycodone HCl (Oxycodone 5 Mg Tab) 20 mg PO Q6H PRN PRN Reason: Pain, Moderate (4-6) Last Admin: 06/27/22 00:39 Dose: 20 mg Sertraline HCl (Sertraline 25 Mg Tab) 25 mg PO QDAY [facility] Last Admin: 06/26/22 09:54 Dose: 25 mg Trazodone HCl (Trazodone 50 Mg Tab) 50 mg PO QHS [facility] Last Admin: 06/26/22 21:15 Dose: 50 mg Results - Results Labs/Vitals: Laboratory Last Values WBC 6.5 K/mm3 (4.5-11.0) 06/24/22 10:25 RBC 3.90 M/mm3 (3.65-5.03) 06/24/22 10:25 Hgb 12.6 gm/dl (11.8-15.2) 06/24/22 10:25 Hct 36.7 % (35.5-45.6) 06/24/22 10:25 MCV 94 fl (84-94) 06/24/22 10:25 MCH 32 pg (28-32) 06/24/22 10:25 MCHC 34 % (32-34) 06/24/22 10:25 RDW 14.5 % (13.2-15.2) 06/24/22 10:25 Plt Count 217 K/mm3 (140-440) 06/24/22 10:25 Lymph % (Auto) 46.1 % (13.4-35.0) H 06/24/22 10:25 [place] % (Auto) 9.0 % (0.0-7.3) H 06/24/22 10:25 Eos % (Auto) 1.0 % (0.0-4.3) 06/24/22 10:25 Baso % (Auto) 1.1 % (0.0-1.8) 06/24/22 10:25 Lymph # (Auto) 3.0 K/mm3 (1.2-5.4) 06/24/22 10:25 [place] # (Auto) 0.6 K/mm3 (0.0-0.8) 06/24/22 10:25 Eos # (Auto) 0.1 K/mm3 (0.0-0.4) 06/24/22 10:25 Baso # (Auto) 0.1 K/mm3 (0.0-0.1) 06/24/22 10:25 Seg Neutrophils % 42.8 % (40.0-70.0) 06/24/22 10:25 Seg Neutrophils # 2.8 K/mm3 (1.8-7.7) 06/24/22 10:25 Sodium 139 mmol/L (137-145) 06/24/22 10:25 Potassium 3.6 mmol/L (3.6-5.0) 06/24/22 10:25 Chloride 106.0 mmol/L (98-107) 06/24/22 10:25 Carbon Dioxide 19 mmol/L (22-30) L 06/24/22 10:25 Anion Gap 18 mmol/L 06/24/22 10:25 BUN 7 mg/dL (9-20) L 06/24/22 10:25 Creatinine 0.6 mg/dL (0.8-1.3) L 06/24/22 10:25 Estimated GFR > 60 ml/min 06/24/22 10:25 BUN/Creatinine Ratio 12 % 06/24/22 10:25 Glucose 107 mg/dL (75-100) H 06/24/22 10:25 Hemoglobin A1c 4.9 % (4-6) 06/24/22 10:25 Calcium 9.5 mg/dL (8.4-10.2) 06/24/22 10:25 Total Bilirubin 0.40 mg/dL (0.1-1.2) 06/24/22 10:25 AST 14 units/L (5-40) 06/24/22 10:25 ALT 21 units/L (7-56) 06/24/22 10:25 Alkaline Phosphatase 66 units/L (35-129) 06/24/22 10:25 Troponin T < 0.010 ng/mL (0.00-0.029) 06/25/22 09:43 Total Protein 6.2 g/dL (6.3-8.2) L 06/24/22 10:25 Albumin 4.2 g/dL (3.9-5) 06/24/22 10:25 Albumin/Globulin Ratio 2.1 % 06/24/22 10:25 Triglycerides 63 mg/dL (2-149) 06/24/22 10:25 Cholesterol 162 mg/dL (50-199) 06/24/22 10:25 LDL Cholesterol Direct 95 mg/dL (50-130) 06/24/22 10:25 HDL Cholesterol 59 mg/dL (40-59) 06/24/22 10:25 Cholesterol/HDL Ratio 2.74 % 06/24/22 10:25 TSH 0.470 mlU/mL (0.270-4.200) 06/24/22 10:25 Last Vital Signs Temp 98.1 F 06/26/22 07:38 Pulse 64 06/26/22 07:38 Resp 18 06/26/22 09:55 BP 102/67 06/26/22 07:38 Pulse Ox 97 06/26/22 07:38
[2022-06-27] MEDS: ARIPiprazole 10 MG TAB PO SCH (09:09)
[2022-06-27] MEDS: SERTRALINE 25 MG TAB PO SCH (09:11)
--- NOTE | 2022-06-27 18:23 | Progress Note ---
Assessment and Plan - Patient Problems (1) Bipolar disorder Current Visit: No Status: Acute Plan to address problem: Continue medical management, supportive care. (2) Chronic pain syndrome Current Visit: No Status: Acute Plan to address problem: Continue medical management, supportive care. Outpatient follow-up with pain management team. (3) Opioid dependence Current Visit: No Status: Acute Qualifiers: Complication of substance-induced condition: uncomplicated Plan to address problem: Continue medical management, neurochecks, pain control, supportive care. Verbal prompting, verbal redirection. (4) Osteoarthritis Current Visit: Yes Status: Acute Plan to address problem: Supportive care, continue medical management. NSAID therapy as clinically indicated. (5) Malnutrition Current Visit: Yes Status: Acute Qualifiers: Protein-calorie malnutrition severity: moderate Plan to address problem: Is increased protein intake, dietary supplementation. (6) Advance care planning Current Visit: No Status: Acute Plan to address problem: Disease education conducted, care plan discussed, diagnoses discussed, prognosis discussed, patient is full code. Patient acknowledges understanding and agreement with care plan, +30 minutes. (7) Preventative health care Current Visit: Yes Status: Acute Plan to address problem: Patient counseled regarding increase protein intake, dietary supplementation. Patient counseled regarding outpatient follow-up with primary care physician for all age and risk factor appropriate screening test. An outpatient follow-up with pain management service. History Interval history: 61 YO Male with Vascular Dementia with Behavioral Disturbance, Cerebral Atherosclerosis, Bipolar Disorder, SSS S/P Pacemaker placement, CVA, CPS, Opioid Dependence, OA, Malnutrition admitted to [facility] for psychiatric stabilization. Consult placed by Dr. Mills for medical management. Pt seen and evaluated in the recreation room. No reported nursing events. Patient appears to be at baseline level of cognition and function. Hospitalist Physical - Constitutional Vitals: Temp Pulse Resp BP Pulse Ox 98.1 F 64 18 102/67 97 06/26/22 07:38 06/26/22 07:38 06/26/22 09:55 06/26/22 07:38 06/26/22 07:38 General appearance: Present: cachectic - EENT Eyes: Present: PERRL ENT: hearing decreased - Neck Neck: Present: supple - Respiratory Respiratory effort: normal Respiratory: bilateral: CTA - Cardiovascular Rhythm: regular Heart Sounds: Present: S1 & S2 - Extremities Extremities: no ischemia Peripheral Pulses: within normal limits - Abdominal General gastrointestinal: soft, non-tender, non-distended - Integumentary Integumentary: Present: clear, dry - Psychiatric Psychiatric: cooperative - Neurologic Neurologic: CNII-XII intact HEART Score - HEART Score Troponin: Troponin T < 0.010 ng/mL (0.00-0.029) 06/25/22 09:43 Results - Labs CBC & Chem 7: 06/24/22 10:25 06/24/22 10:25 Labs: Laboratory Last Values WBC 6.5 K/mm3 (4.5-11.0) 06/24/22 10:25 RBC 3.90 M/mm3 (3.65-5.03) 06/24/22 10:25 Hgb 12.6 gm/dl (11.8-15.2) 06/24/22 10:25 Hct 36.7 % (35.5-45.6) 06/24/22 10:25 MCV 94 fl (84-94) 06/24/22 10:25 MCH 32 pg (28-32) 06/24/22 10:25 MCHC 34 % (32-34) 06/24/22 10:25 RDW 14.5 % (13.2-15.2) 06/24/22 10:25 Plt Count 217 K/mm3 (140-440) 06/24/22 10:25 Lymph % (Auto) 46.1 % (13.4-35.0) H 06/24/22 10:25 [place] % (Auto) 9.0 % (0.0-7.3) H 06/24/22 10:25 Eos % (Auto) 1.0 % (0.0-4.3) 06/24/22 10:25 Baso % (Auto) 1.1 % (0.0-1.8) 06/24/22 10:25 Lymph # (Auto) 3.0 K/mm3 (1.2-5.4) 06/24/22 10:25 [place] # (Auto) 0.6 K/mm3 (0.0-0.8) 06/24/22 10:25 Eos # (Auto) 0.1 K/mm3 (0.0-0.4) 06/24/22 10:25 Baso # (Auto) 0.1 K/mm3 (0.0-0.1) 06/24/22 10:25 Seg Neutrophils % 42.8 % (40.0-70.0) 06/24/22 10:25 Seg Neutrophils # 2.8 K/mm3 (1.8-7.7) 06/24/22 10:25 Sodium 139 mmol/L (137-145) 06/24/22 10:25 Potassium 3.6 mmol/L (3.6-5.0) 06/24/22 10:25 Chloride 106.0 mmol/L (98-107) 06/24/22 10:25 Carbon Dioxide 19 mmol/L (22-30) L 06/24/22 10:25 Anion Gap 18 mmol/L 06/24/22 10:25 BUN 7 mg/dL (9-20) L 06/24/22 10:25 Creatinine 0.6 mg/dL (0.8-1.3) L 06/24/22 10:25 Estimated GFR > 60 ml/min 06/24/22 10:25 BUN/Creatinine Ratio 12 % 06/24/22 10:25 Glucose 107 mg/dL (75-100) H 06/24/22 10:25 Hemoglobin A1c 4.9 % (4-6) 06/24/22 10:25 Calcium 9.5 mg/dL (8.4-10.2) 06/24/22 10:25 Total Bilirubin 0.40 mg/dL (0.1-1.2) 06/24/22 10:25 AST 14 units/L (5-40) 06/24/22 10:25 ALT 21 units/L (7-56) 06/24/22 10:25 Alkaline Phosphatase 66 units/L (35-129) 06/24/22 10:25 Troponin T < 0.010 ng/mL (0.00-0.029) 06/25/22 09:43 Total Protein 6.2 g/dL (6.3-8.2) L 06/24/22 10:25 Albumin 4.2 g/dL (3.9-5) 06/24/22 10:25 Albumin/Globulin Ratio 2.1 % 06/24/22 10:25 Triglycerides 63 mg/dL (2-149) 06/24/22 10:25 Cholesterol 162 mg/dL (50-199) 06/24/22 10:25 LDL Cholesterol Direct 95 mg/dL (50-130) 06/24/22 10:25 HDL Cholesterol 59 mg/dL (40-59) 06/24/22 10:25 Cholesterol/HDL Ratio 2.74 % 06/24/22 10:25 TSH 0.470 mlU/mL (0.270-4.200) 06/24/22 10:25 Flores/IV: Voiding Method Toilet Active Medications - Current Medications Current Medications: Generic Name Dose Route Start Last Admin Trade Name Freq PRN Reason Stop Dose Admin Aripiprazole 10 mg 06/26/22 10:00 06/27/22 09:09 Aripiprazole 10 Mg Tab PO 10 mg QDAY JENNI Administration Fentanyl 1 applic 06/25/22 17:00 Fentanyl 12 Mcg/Hr Patch 72hr TD Q72HR JENNI Gabapentin 600 mg 06/25/22 10:30 06/27/22 14:08 Gabapentin 300 Mg Cap PO 600 mg Q8HR JENNI Administration Hydroxyzine Pamoate 25 mg 06/26/22 09:37 Hydroxyzine Pamoate 25 Mg Cap PO Q6H PRN Anxiety Melatonin 5 mg 06/25/22 11:01 06/26/22 21:15 Melatonin 5 Mg Tab PO 5 mg QHS PRN Administration Sleep Ondansetron HCl 8 mg 06/25/22 16:26 Ondansetron 8 Mg Odt Tab PO QID PRN Nausea Oxycodone HCl 20 mg 06/25/22 10:30 06/27/22 15:05 Oxycodone 5 Mg Tab PO 20 mg Q6H PRN Administration Pain, Moderate (4-6) Sertraline HCl 25 mg 06/26/22 10:00 06/27/22 09:11 Sertraline 25 Mg Tab PO 25 mg QDAY JENNI Administration Trazodone HCl 50 mg 06/25/22 22:00 06/26/22 21:15 Trazodone 50 Mg Tab PO 50 mg QHS JENNI Administration Nutrition/Malnutrition Assess - Dietary Evaluation Nutrition/Malnutrition Findings: Nutrition Notes Start: 06/25/22 13:03 Freq: Status: Active Protocol: Document 06/25/22 13:03 RADHA (Rec: 06/25/22 13:07 RADHA [id number]) Nutrition Notes Need for Assessment generated from: Low BMI Initial or Follow up Assessment Other Pertinent Diagnosis Suicidal ideation, depression, anxiety, PTSD Current Diet Regular Labs/Tests Reviewed Pertinent Medications Reviewed Height 5 ft 10 in Weight 45.3 kg [place] Body Weight (kg) 75.45 BMI 14.3 Weight Status Underweight Subjective/Other Information Pt screened for low BMI. He consumed 63% of lunch today. No recent wt changes per MD H& P. Burn Absent Trauma Absent Current % PO Fair (50-74%) Minimum of two criteria No #1 Nutrition Diagnosis Underweight Etiology hx of depression, insomnia As Evidenced by Signs and Symptoms BMI 14.3 Is patient on ventilator? No Is Patient Ambulatory and/or Out of Bed Yes REE-([facility]-ambulatory/OOB) [ 1637.025 [id number]] Kcal/Kg value to use for calculation 45 Approximate Energy Requirements Using 2038 kcal/Kg Calculation Used for Recommendations Kcal/kg Additional Notes Pro needs 1.2-1.5g/k-68g/ day Fluid needs 1ml/kcal Nutrition Intervention Change Diet Order: Continue current diet order Add Supplement/Snack (indicate name/kcal Ensure High Protein BID /protein ) Provides kCal: 320 Provides Protein (gm) 32 Goal #1 PO intake of meals plus ONS to meet 100% energy and pro needs Goal #2 Wt maintenance and/or gain Anticipated Discharge Needs: High-calorie/high-protein diet ; 1-2 ONS daily for wt maintenance Follow-Up By: 07/02/22 Additional Comments F/U: intakes, wt
[2022-06-27] MEDS: MELATONIN 5 MG TAB PO PRN (21:06)
[2022-06-27] MEDS: traZODone 50 MG TAB PO SCH (21:07)
[2022-06-28] MEDS: oxyCODONE 5 MG TAB PO PRN ×4 (03:07→23:01)
[2022-06-28] MEDS: GABAPENTIN 300 MG CAP PO SCH ×3 (05:46→21:17)
--- NOTE | 2022-06-28 08:50 | Progress Note ---
Subjective Date of service: 06/28/22 Subjective Comment: 06/28:The patient was seen this morning. He reports doing better but continues to be depressed " in residential," he reports sleep and appetite as good. The patient denies any current suicidal/homicidal ideation and denies hallucinations. 06/27:The patient was seen this morning. He states he is doing alright but continues to endorse depression. He reports sleep and appetite as good. The patient denies any current suicidal/homicidal ideation and denies hallucinations. 06/26: The patient was seen this morning. He continues to endorse depression and racing thoughts. The patient denies any current suicidal/homicidal ideation and denies hallucinations. REVIEW OF SYSTEMS Constitutional: Negative for weight loss ENT: Negative for stridor Respiratory: Negative for cough or hemoptysis All other systems reviewed and are negative MENTAL STATUS EXAMINATION General Appearance and Behavior: Age appropriate, wearing appropriate clothes, cooperative, polite with questioning, good eye contact Cooperation: cooperative Psychomotor Behavior: Psychomotor normal Mood: depressed Affect and affective range: congruent with stated affect Thought Process: racing thoughts Thought Content:Reality oriented Speech: Normal volume, Regular rate and rhythm Suicidal Ideation: Denies Homicidal Ideation: Denies Hallucination:Denies Delusions: None Impulse Control: Limited Insight and Judgment: Limited Memory: Intact Attention: attentive Orientation: Alert and oriented Diagnosis: Schizophrenia Disorder Treatment Plan Patient admitted for inpatient psychiatric evaluation, medication adjustment and close monitoring The patient's behavior, mood, sleep and appetite will be closely monitored. Patient enrolled in individual and group therapeutic sessions and encouraged to attend. Patient provided with a safe and structured environment. Patient's physical health needs will be addressed by the Hospitalist. Hospitalist Consulted Labs including CBC, CMP, Lipid profile and Hemoglobin A1C levels ordered for baseline reference Social Assessment will be completed and the Steam Engineer will work with patient and family to ensure a suitable and safe disposition Medication adjustment will be made as clinically indicated Continue home meds Continue Abilify to 10mg po daily Continue Sertaline 25mg po daily Continue Vistaril 25mg po Q6hs PRN Usual Wellness Caodaism/Preservation: - Start Trazodone 50 mg po QHS & 50 mg po QHS PRN between 10 PM & 2 AM for insomnia - Start Melatonin 5 mg po QHS to promote circadian rhythm The patient agreed on the treatment plan, understood the risk, benefit, alternative treatment, potential consequence of no treatment, and gave informed consent. Estimated days: 7 Post hospital care: primary care provider, psychiatric provider Case staffed with Dr. Martin Legal Status: Voluntary Reaction to Hospitalization: Accepting Medications and Allergies Medications and Allergies Allergies Allergy/AdvReac Type Severity Reaction Status Date / Time No Known Allergies Allergy Verified 11/25/21 09:35 Home Medications Medication Instructions Recorded Confirmed Last Taken Type Oxycodone HCl [oxyCODONE] 20 mg PO Q6H PRN 11/13/21 06/26/22 Unknown History fentaNYL [Fentanyl] 75 mg TRANSDERMA Q72HR 11/13/21 06/26/22 Unknown History ARIPiprazole 5 mg PO QDAY 30 Days #30 tablet 11/17/21 06/26/22 Unknown Rx DULoxetine [Cymbalta] 60 mg PO BID 30 Days #60 capsule 11/17/21 06/26/22 Unknown Rx Gabapentin 600 mg PO Q8HR 30 Days #60 capsule 11/17/21 06/26/22 Unknown Rx Melatonin [Melatonin 5MG TAB] 5 mg PO QHS PRN tablet 11/17/21 06/26/22 Unknown Rx Venlafaxine [Effexor] 75 mg PO QDAY 30 Days #30 tablet 11/17/21 06/26/22 Unknown Rx traZODone [Desyrel] 50 mg PO QHS 30 Days #30 tablet 11/17/21 06/26/22 Unknown Rx Ondansetron [Zofran ODT TAB] 8 mg PO QID PRN #20 tab.rapdis 11/30/21 06/26/22 Unknown Rx Active Meds: Active Medications Aripiprazole (Aripiprazole 10 Mg Tab) 10 mg PO QDAY JENNI Last Admin: 06/27/22 09:09 Dose: 10 mg Fentanyl (Fentanyl 12 Mcg/Hr Patch 72hr) 1 applic TD Q72HR JENNI Gabapentin (Gabapentin 300 Mg Cap) 600 mg PO Q8HR JENNI Last Admin: 06/28/22 05:46 Dose: 600 mg Hydroxyzine Pamoate (Hydroxyzine Pamoate 25 Mg Cap) 25 mg PO Q6H PRN PRN Reason: Anxiety Melatonin (Melatonin 5 Mg Tab) 5 mg PO QHS PRN PRN Reason: Sleep Last Admin: 06/27/22 21:06 Dose: 5 mg Ondansetron HCl (Ondansetron 8 Mg Odt Tab) 8 mg PO QID PRN PRN Reason: Nausea Oxycodone HCl (Oxycodone 5 Mg Tab) 20 mg PO Q6H PRN PRN Reason: Pain, Moderate (4-6) Last Admin: 06/28/22 03:07 Dose: 20 mg Sertraline HCl (Sertraline 25 Mg Tab) 25 mg PO QDAY [facility] Last Admin: 06/27/22 09:11 Dose: 25 mg Trazodone HCl (Trazodone 50 Mg Tab) 50 mg PO QHS [facility] Last Admin: 06/27/22 21:07 Dose: 50 mg Results - Results Labs/Vitals: Laboratory Last Values WBC 6.5 K/mm3 (4.5-11.0) 06/24/22 10:25 RBC 3.90 M/mm3 (3.65-5.03) 06/24/22 10:25 Hgb 12.6 gm/dl (11.8-15.2) 06/24/22 10:25 Hct 36.7 % (35.5-45.6) 06/24/22 10:25 MCV 94 fl (84-94) 06/24/22 10:25 MCH 32 pg (28-32) 06/24/22 10:25 MCHC 34 % (32-34) 06/24/22 10:25 RDW 14.5 % (13.2-15.2) 06/24/22 10:25 Plt Count 217 K/mm3 (140-440) 06/24/22 10:25 Lymph % (Auto) 46.1 % (13.4-35.0) H 06/24/22 10:25 [place] % (Auto) 9.0 % (0.0-7.3) H 06/24/22 10:25 Eos % (Auto) 1.0 % (0.0-4.3) 06/24/22 10:25 Baso % (Auto) 1.1 % (0.0-1.8) 06/24/22 10:25 Lymph # (Auto) 3.0 K/mm3 (1.2-5.4) 06/24/22 10:25 [place] # (Auto) 0.6 K/mm3 (0.0-0.8) 06/24/22 10:25 Eos # (Auto) 0.1 K/mm3 (0.0-0.4) 06/24/22 10:25 Baso # (Auto) 0.1 K/mm3 (0.0-0.1) 06/24/22 10:25 Seg Neutrophils % 42.8 % (40.0-70.0) 06/24/22 10:25 Seg Neutrophils # 2.8 K/mm3 (1.8-7.7) 06/24/22 10:25 Sodium 139 mmol/L (137-145) 06/24/22 10:25 Potassium 3.6 mmol/L (3.6-5.0) 06/24/22 10:25 Chloride 106.0 mmol/L (98-107) 06/24/22 10:25 Carbon Dioxide 19 mmol/L (22-30) L 06/24/22 10:25 Anion Gap 18 mmol/L 06/24/22 10:25 BUN 7 mg/dL (9-20) L 06/24/22 10:25 Creatinine 0.6 mg/dL (0.8-1.3) L 06/24/22 10:25 Estimated GFR > 60 ml/min 06/24/22 10:25 BUN/Creatinine Ratio 12 % 06/24/22 10:25 Glucose 107 mg/dL (75-100) H 06/24/22 10:25 Hemoglobin A1c 4.9 % (4-6) 06/24/22 10:25 Calcium 9.5 mg/dL (8.4-10.2) 06/24/22 10:25 Total Bilirubin 0.40 mg/dL (0.1-1.2) 06/24/22 10:25 AST 14 units/L (5-40) 06/24/22 10:25 ALT 21 units/L (7-56) 06/24/22 10:25 Alkaline Phosphatase 66 units/L (35-129) 06/24/22 10:25 Troponin T < 0.010 ng/mL (0.00-0.029) 06/25/22 09:43 Total Protein 6.2 g/dL (6.3-8.2) L 06/24/22 10:25 Albumin 4.2 g/dL (3.9-5) 06/24/22 10:25 Albumin/Globulin Ratio 2.1 % 06/24/22 10:25 Triglycerides 63 mg/dL (2-149) 06/24/22 10:25 Cholesterol 162 mg/dL (50-199) 06/24/22 10:25 LDL Cholesterol Direct 95 mg/dL (50-130) 06/24/22 10:25 HDL Cholesterol 59 mg/dL (40-59) 06/24/22 10:25 Cholesterol/HDL Ratio 2.74 % 06/24/22 10:25 TSH 0.470 mlU/mL (0.270-4.200) 06/24/22 10:25 Last Vital Signs Temp 98.0 F 06/27/22 20:10 Pulse 69 06/27/22 20:10 Resp 16 06/28/22 03:07 BP 97/65 06/27/22 20:10 Pulse Ox 97 06/26/22 07:38
[2022-06-28] MEDS: ARIPiprazole 10 MG TAB PO SCH (09:46)
[2022-06-28] MEDS: SERTRALINE 25 MG TAB PO SCH (09:47)
[2022-06-28] MEDS: MELATONIN 5 MG TAB PO PRN (21:16)
[2022-06-28] MEDS: traZODone 50 MG TAB PO SCH (21:17)
[2022-06-29] MEDS: GABAPENTIN 300 MG CAP PO SCH ×3 (06:16→22:01)
--- NOTE | 2022-06-29 10:09 | Progress Note ---
Subjective Date of service: 06/29/22 Subjective Comment: 06/29:The patient was seen this morning. He reports doing well but continues to endorse depression " nothing abnormal, I just worry, I'll make it and I'll be okay." The patient denies any current suicidal/homicidal ideation and denies hallucinations. 06/28:The patient was seen this morning. He reports doing better but continues to be depressed " in shelter," he reports sleep and appetite as good. The patient denies any current suicidal/homicidal ideation and denies hallucinations. 06/27:The patient was seen this morning. He states he is doing alright but continues to endorse depression. He reports sleep and appetite as good. The patient denies any current suicidal/homicidal ideation and denies hallucinations. 06/26: The patient was seen this morning. He continues to endorse depression and racing thoughts. The patient denies any current suicidal/homicidal ideation and denies hallucinations. REVIEW OF SYSTEMS Constitutional: Negative for weight loss ENT: Negative for stridor Respiratory: Negative for cough or hemoptysis All other systems reviewed and are negative MENTAL STATUS EXAMINATION General Appearance and Behavior: Age appropriate, wearing appropriate clothes, cooperative, polite with questioning, good eye contact Cooperation: cooperative Psychomotor Behavior: Psychomotor normal Mood: depressed Affect and affective range: congruent with stated affect Thought Process: goal directed Thought Content:Reality oriented Speech: Normal volume, Regular rate and rhythm Suicidal Ideation: Denies Homicidal Ideation: Denies Hallucination:Denies Delusions: None Impulse Control: Limited Insight and Judgment: Limited Memory: Intact Attention: attentive Orientation: Alert and oriented Diagnosis: Schizophrenia Disorder Treatment Plan Patient admitted for inpatient psychiatric evaluation, medication adjustment and close monitoring The patient's behavior, mood, sleep and appetite will be closely monitored. Patient enrolled in individual and group therapeutic sessions and encouraged to attend. Patient provided with a safe and structured environment. Patient's physical health needs will be addressed by the Hospitalist. Hospitalist Consulted Labs including CBC, CMP, Lipid profile and Hemoglobin A1C levels ordered for baseline reference Social Assessment will be completed and the Manager Workers Compensation will work with patient and family to ensure a suitable and safe disposition Medication adjustment will be made as clinically indicated Continue home meds Continue Abilify to 10mg po daily Continue Sertaline 25mg po daily Continue Vistaril 25mg po Q6hs PRN Usual Wellness Mu-Ism/Preservation: - Start Trazodone 50 mg po QHS & 50 mg po QHS PRN between 10 PM & 2 AM for insomnia - Start Melatonin 5 mg po QHS to promote circadian rhythm The patient agreed on the treatment plan, understood the risk, benefit, alternative treatment, potential consequence of no treatment, and gave informed consent. Estimated days: 7 Post hospital care: primary care provider, psychiatric provider Case staffed with Dr. Martin Legal Status: Voluntary Reaction to Hospitalization: Accepting Medications and Allergies Medications and Allergies Allergies Allergy/AdvReac Type Severity Reaction Status Date / Time No Known Allergies Allergy Verified 11/25/21 09:35 Home Medications Medication Instructions Recorded Confirmed Last Taken Type Oxycodone HCl [oxyCODONE] 20 mg PO Q6H PRN 11/13/21 06/26/22 Unknown History fentaNYL [Fentanyl] 75 mg TRANSDERMA Q72HR 11/13/21 06/26/22 Unknown History ARIPiprazole 5 mg PO QDAY 30 Days #30 tablet 11/17/21 06/26/22 Unknown Rx DULoxetine [Cymbalta] 60 mg PO BID 30 Days #60 capsule 11/17/21 06/26/22 Unknown Rx Gabapentin 600 mg PO Q8HR 30 Days #60 capsule 11/17/21 06/26/22 Unknown Rx Melatonin [Melatonin 5MG TAB] 5 mg PO QHS PRN tablet 11/17/21 06/26/22 Unknown Rx Venlafaxine [Effexor] 75 mg PO QDAY 30 Days #30 tablet 11/17/21 06/26/22 Unknown Rx traZODone [Desyrel] 50 mg PO QHS 30 Days #30 tablet 11/17/21 06/26/22 Unknown Rx Ondansetron [Zofran ODT TAB] 8 mg PO QID PRN #20 tab.rapdis 11/30/21 06/26/22 Unknown Rx Active Meds: Active Medications Aripiprazole (Aripiprazole 10 Mg Tab) 10 mg PO QDAY JENNI Last Admin: 06/28/22 09:46 Dose: 10 mg Fentanyl (Fentanyl 12 Mcg/Hr Patch 72hr) 1 applic TD Q72HR JENNI Gabapentin (Gabapentin 300 Mg Cap) 600 mg PO Q8HR JENNI Last Admin: 06/29/22 06:16 Dose: 600 mg Hydroxyzine Pamoate (Hydroxyzine Pamoate 25 Mg Cap) 25 mg PO Q6H PRN PRN Reason: Anxiety Melatonin (Melatonin 5 Mg Tab) 5 mg PO QHS PRN PRN Reason: Sleep Last Admin: 06/28/22 21:16 Dose: 5 mg Ondansetron HCl (Ondansetron 8 Mg Odt Tab) 8 mg PO QID PRN PRN Reason: Nausea Oxycodone HCl (Oxycodone 5 Mg Tab) 20 mg PO Q6H PRN PRN Reason: Pain, Moderate (4-6) Last Admin: 06/28/22 23:01 Dose: 20 mg Sertraline HCl (Sertraline 25 Mg Tab) 25 mg PO QDAY [facility] Last Admin: 06/28/22 09:47 Dose: 25 mg Trazodone HCl (Trazodone 50 Mg Tab) 50 mg PO QHS [facility] Last Admin: 06/28/22 21:17 Dose: 50 mg Results - Results Labs/Vitals: Laboratory Last Values WBC 6.5 K/mm3 (4.5-11.0) 06/24/22 10:25 RBC 3.90 M/mm3 (3.65-5.03) 06/24/22 10:25 Hgb 12.6 gm/dl (11.8-15.2) 06/24/22 10:25 Hct 36.7 % (35.5-45.6) 06/24/22 10:25 MCV 94 fl (84-94) 06/24/22 10:25 MCH 32 pg (28-32) 06/24/22 10:25 MCHC 34 % (32-34) 06/24/22 10:25 RDW 14.5 % (13.2-15.2) 06/24/22 10:25 Plt Count 217 K/mm3 (140-440) 06/24/22 10:25 Lymph % (Auto) 46.1 % (13.4-35.0) H 06/24/22 10:25 [place] % (Auto) 9.0 % (0.0-7.3) H 06/24/22 10:25 Eos % (Auto) 1.0 % (0.0-4.3) 06/24/22 10:25 Baso % (Auto) 1.1 % (0.0-1.8) 06/24/22 10:25 Lymph # (Auto) 3.0 K/mm3 (1.2-5.4) 06/24/22 10:25 [place] # (Auto) 0.6 K/mm3 (0.0-0.8) 06/24/22 10:25 Eos # (Auto) 0.1 K/mm3 (0.0-0.4) 06/24/22 10:25 Baso # (Auto) 0.1 K/mm3 (0.0-0.1) 06/24/22 10:25 Seg Neutrophils % 42.8 % (40.0-70.0) 06/24/22 10:25 Seg Neutrophils # 2.8 K/mm3 (1.8-7.7) 06/24/22 10:25 Sodium 139 mmol/L (137-145) 06/24/22 10:25 Potassium 3.6 mmol/L (3.6-5.0) 06/24/22 10:25 Chloride 106.0 mmol/L (98-107) 06/24/22 10:25 Carbon Dioxide 19 mmol/L (22-30) L 06/24/22 10:25 Anion Gap 18 mmol/L 06/24/22 10:25 BUN 7 mg/dL (9-20) L 06/24/22 10:25 Creatinine 0.6 mg/dL (0.8-1.3) L 06/24/22 10:25 Estimated GFR > 60 ml/min 06/24/22 10:25 BUN/Creatinine Ratio 12 % 06/24/22 10:25 Glucose 107 mg/dL (75-100) H 06/24/22 10:25 Hemoglobin A1c 4.9 % (4-6) 06/24/22 10:25 Calcium 9.5 mg/dL (8.4-10.2) 06/24/22 10:25 Total Bilirubin 0.40 mg/dL (0.1-1.2) 06/24/22 10:25 AST 14 units/L (5-40) 06/24/22 10:25 ALT 21 units/L (7-56) 06/24/22 10:25 Alkaline Phosphatase 66 units/L (35-129) 06/24/22 10:25 Troponin T < 0.010 ng/mL (0.00-0.029) 06/25/22 09:43 Total Protein 6.2 g/dL (6.3-8.2) L 06/24/22 10:25 Albumin 4.2 g/dL (3.9-5) 06/24/22 10:25 Albumin/Globulin Ratio 2.1 % 06/24/22 10:25 Triglycerides 63 mg/dL (2-149) 06/24/22 10:25 Cholesterol 162 mg/dL (50-199) 06/24/22 10:25 LDL Cholesterol Direct 95 mg/dL (50-130) 06/24/22 10:25 HDL Cholesterol 59 mg/dL (40-59) 06/24/22 10:25 Cholesterol/HDL Ratio 2.74 % 06/24/22 10:25 TSH 0.470 mlU/mL (0.270-4.200) 06/24/22 10:25 Last Vital Signs Temp 98.3 F 06/28/22 19:22 Pulse 83 06/28/22 19:22 Resp 17 06/28/22 19:22 BP 122/87 06/28/22 19:22 Pulse Ox 96 06/28/22 19:22
[2022-06-29] MEDS: SERTRALINE 25 MG TAB PO SCH (10:32)
[2022-06-29] MEDS: ARIPiprazole 10 MG TAB PO SCH (10:32)
[2022-06-29] MEDS: oxyCODONE 5 MG TAB PO PRN ×3 (10:32→22:51)
[2022-06-29 19:57] VITALS: BP 103/77
[2022-06-29] MEDS: traZODone 50 MG TAB PO SCH (22:01)
[2022-06-29] MEDS: MELATONIN 5 MG TAB PO PRN (22:01)
[2022-06-30] MEDS: GABAPENTIN 300 MG CAP PO SCH ×2 (06:12→14:06)
[2022-06-30] MEDS: oxyCODONE 5 MG TAB PO PRN ×2 (06:43→12:03)
--- NOTE | 2022-06-30 08:32 | Discharge Summary ---
Providers - Providers Date of Admission: 06/25/22 01:17 Date of discharge: 06/30/22 Attending physician: GIANNA ASENCIO MD 06/24/22 20:21 Consult to Physician [CONS] Routine Comment: Consulting Provider: CODY JEAN Physician Instructions: Reason For Exam: manage medical conditions Primary care physician: KINDERGARTEN AIDE Hospitalization Hospital course: The patient was provided inpatient psychiatric treatment with safe and supportive environment, group/individual therapy, psychiatric medication, medication adjustment, adverse effect monitor, medical evaluation, medical treatment, social service assessment, social support meeting, placement assessment and psycho-education. The patients mood, cognition, behavior, motivation, compliance to treatment and appreciation on family/social support are improved and stabilized. At the time of discharge, the patient had no suicidal ideas, no homicidal ideas, no aggressive thoughts, no endangering behavior and no debilitating adverse effects. The patient agreed on the treatment plan, understood the risk, benefit, alternative treatment, potential consequence of no treatment, and gave informed consent. Progress Note: 06/29:The patient was seen this morning. He reports doing well but continues to endorse depression " nothing abnormal, I just worry, I'll make it and I'll be o erika." The patient denies any current suicidal/homicidal ideation and denies hallucinations. 06/28:The patient was seen this morning. He reports doing better but continues to be depressed " in retirement," he reports sleep and appetite as good. The patient denies any current suicidal/homicidal ideation and denies hallucinations. 06/27:The patient was seen this morning. He states he is doing alright but continues to endorse depression. He reports sleep and appetite as good. The patient denies any current suicidal/homicidal ideation and denies hallucinations. 06/26: The patient was seen this morning. He continues to endorse depression and racing thoughts. The patient denies any current suicidal/homicidal ideation and denies hallucinations. Disposition: 30 STILL A PATIENT Allergies/Adverse Reactions: Allergies No Known Allergies Allergy (Verified 11/25/21 09:35) Vital Signs: Last Vital Signs Temp 98.3 F 06/29/22 19:03 Pulse 72 06/29/22 19:03 Resp 18 06/29/22 19:03 BP 103/77 06/29/22 19:03 Pulse Ox 96 06/29/22 19:03 Last Lab: Laboratory Last Values WBC 6.5 K/mm3 (4.5-11.0) 06/24/22 10:25 RBC 3.90 M/mm3 (3.65-5.03) 06/24/22 10:25 Hgb 12.6 gm/dl (11.8-15.2) 06/24/22 10:25 Hct 36.7 % (35.5-45.6) 06/24/22 10:25 MCV 94 fl (84-94) 06/24/22 10:25 MCH 32 pg (28-32) 06/24/22 10:25 MCHC 34 % (32-34) 06/24/22 10:25 RDW 14.5 % (13.2-15.2) 06/24/22 10:25 Plt Count 217 K/mm3 (140-440) 06/24/22 10:25 Lymph % (Auto) 46.1 % (13.4-35.0) H 06/24/22 10:25 [place] % (Auto) 9.0 % (0.0-7.3) H 06/24/22 10:25 Eos % (Auto) 1.0 % (0.0-4.3) 06/24/22 10:25 Baso % (Auto) 1.1 % (0.0-1.8) 06/24/22 10:25 Lymph # (Auto) 3.0 K/mm3 (1.2-5.4) 06/24/22 10:25 [place] # (Auto) 0.6 K/mm3 (0.0-0.8) 06/24/22 10:25 Eos # (Auto) 0.1 K/mm3 (0.0-0.4) 06/24/22 10:25 Baso # (Auto) 0.1 K/mm3 (0.0-0.1) 06/24/22 10:25 Seg Neutrophils % 42.8 % (40.0-70.0) 06/24/22 10:25 Seg Neutrophils # 2.8 K/mm3 (1.8-7.7) 06/24/22 10:25 Sodium 139 mmol/L (137-145) 06/24/22 10:25 Potassium 3.6 mmol/L (3.6-5.0) 06/24/22 10:25 Chloride 106.0 mmol/L (98-107) 06/24/22 10:25 Carbon Dioxide 19 mmol/L (22-30) L 06/24/22 10:25 Anion Gap 18 mmol/L 06/24/22 10:25 BUN 7 mg/dL (9-20) L 06/24/22 10:25 Creatinine 0.6 mg/dL (0.8-1.3) L 06/24/22 10:25 Estimated GFR > 60 ml/min 06/24/22 10:25 BUN/Creatinine Ratio 12 % 06/24/22 10:25 Glucose 107 mg/dL (75-100) H 06/24/22 10:25 Hemoglobin A1c 4.9 % (4-6) 06/24/22 10:25 Calcium 9.5 mg/dL (8.4-10.2) 06/24/22 10:25 Total Bilirubin 0.40 mg/dL (0.1-1.2) 06/24/22 10:25 AST 14 units/L (5-40) 06/24/22 10:25 ALT 21 units/L (7-56) 06/24/22 10:25 Alkaline Phosphatase 66 units/L (35-129) 06/24/22 10:25 Troponin T < 0.010 ng/mL (0.00-0.029) 06/25/22 09:43 Total Protein 6.2 g/dL (6.3-8.2) L 06/24/22 10:25 Albumin 4.2 g/dL (3.9-5) 06/24/22 10:25 Albumin/Globulin Ratio 2.1 % 06/24/22 10:25 Triglycerides 63 mg/dL (2-149) 06/24/22 10:25 Cholesterol 162 mg/dL (50-199) 06/24/22 10:25 LDL Cholesterol Direct 95 mg/dL (50-130) 06/24/22 10:25 HDL Cholesterol 59 mg/dL (40-59) 06/24/22 10:25 Cholesterol/HDL Ratio 2.74 % 06/24/22 10:25 TSH 0.470 mlU/mL (0.270-4.200) 06/24/22 10:25 Core Measure Documentation - Palliative Care Palliative Care/ Comfort Measures: Palliative Care/Comfort Measures - Core Measures Any of the following diagnoses?: none - VTE Discharge Requirements Deep Vein Thrombosis/Pulmonary Embolism Present on Admission: No Exam - Constitutional Vitals: Temp Pulse Resp BP Pulse Ox 98.3 F 72 18 103/77 96 06/29/22 19:03 06/29/22 19:03 06/29/22 19:03 06/29/22 19:03 06/29/22 19:03 Plan Activity: advance as tolerated Weight Bearing Status: Weight Bear as Tolerated Durable Medical Equipment Needed Upon Discharge: Wheelchair Care Plan Goals: Maintain good and stable mental health. Plan of Treatment: The patient should be compliant with medications, not to use drugs and not to drink alcohol.The patient understands that if suicidal ideas, homicidal ideas, or any endangering thoughts/behavior arise, they should immediately seek for emergent assistance including but not limited to crisis hot line and emergency room. Follow up with outpatient Psychiatrist and PCP within 7 - 14 days of discharge. Follow up with: PRIMARY CARE, [Primary Care Provider] - 7 Days Prescriptions: traZODone [Desyrel] 50 mg PO QHS 30 Days #30 tablet ARIPiprazole [Abilify TAB] 10 mg PO QDAY 30 Days #30 tablet Gabapentin 600 mg PO Q8HR 30 Days #60 capsule Sertraline [Zoloft] 25 mg PO QDAY 30 Days #30 tablet
[2022-06-30] MEDS: SERTRALINE 25 MG TAB PO SCH (09:41)
[2022-06-30] MEDS: ARIPiprazole 10 MG TAB PO SCH (09:41)
--- NOTE | 2022-06-30 11:41 | Progress Note ---
Assessment and Plan Assessment and plan: 06/30: Continue supportive care. No change in management from medicine standpoint at this time. - Patient Problems (1) Bipolar disorder Current Visit: No Status: Acute Plan to address problem: Continue medical management, supportive care. (2) Chronic pain syndrome Current Visit: No Status: Acute Plan to address problem: Continue medical management, supportive care. Outpatient follow-up with pain management team. (3) Opioid dependence Current Visit: No Status: Acute Qualifiers: Complication of substance-induced condition: uncomplicated Plan to address problem: Continue medical management, neurochecks, pain control, supportive care. Verbal prompting, verbal redirection. (4) Osteoarthritis Current Visit: Yes Status: Acute Plan to address problem: Supportive care, continue medical management. NSAID therapy as clinically indicated. (5) Malnutrition Current Visit: Yes Status: Acute Qualifiers: Protein-calorie malnutrition severity: moderate Plan to address problem: Is increased protein intake, dietary supplementation. (6) Advance care planning Current Visit: No Status: Acute Plan to address problem: Disease education conducted, care plan discussed, diagnoses discussed, prognosis discussed, patient is full code. Patient acknowledges understanding and agreement with care plan, +30 minutes. (7) Preventative health care Current Visit: Yes Status: Acute Plan to address problem: Patient counseled regarding increase protein intake, dietary supplementation. Patient counseled regarding outpatient follow-up with primary care physician for all age and risk factor appropriate screening test. An outpatient follow-up with pain management service. History Interval history: Patient seen and examined no acute distress at this time.61 YO Male with Vascular Dementia with Behavioral Disturbance, Cerebral Atherosclerosis, Bipolar Disorder, SSS S/P Pacemaker placement, CVA, CPS, Opioid Dependence, OA, Malnut rition admitted to [facility] for psychiatric stabilization. Consult placed by Dr. Mills for medical management. Pt seen and evaluated in the recreation room. No reported nursing events. Patient appears to be at baseline level of cognition and function. Hospitalist Physical - Physical exam Narrative exam: General appearance: Present: cachectic - EENT Eyes: Present: PERRL ENT: hearing decreased - Neck Neck: Present: supple - Respiratory Respiratory effort: normal Respiratory: bilateral: CTA - Cardiovascular Rhythm: regular Heart Sounds: Present: S1 & S2 - Extremities Extremities: no ischemia Peripheral Pulses: within normal limits - Abdominal General gastrointestinal: soft, non-tender, non-distended - Integumentary Integumentary: Present: clear, dry - Psychiatric Psychiatric: cooperative - Neurologic Neurologic: CNII-XII intact - Constitutional Vitals: Temp Pulse Resp BP Pulse Ox 98.3 F 72 18 103/77 96 06/29/22 19:03 06/29/22 19:03 06/29/22 19:03 06/29/22 19:03 06/29/22 19:03 General appearance: Present: cachectic HEART Score - HEART Score Troponin: Troponin T < 0.010 ng/mL (0.00-0.029) 06/25/22 09:43 Results - Labs CBC & Chem 7: 06/24/22 10:25 06/24/22 10:25 Labs: Laboratory Last Values WBC 6.5 K/mm3 (4.5-11.0) 06/24/22 10:25 RBC 3.90 M/mm3 (3.65-5.03) 06/24/22 10:25 Hgb 12.6 gm/dl (11.8-15.2) 06/24/22 10:25 Hct 36.7 % (35.5-45.6) 06/24/22 10:25 MCV 94 fl (84-94) 06/24/22 10:25 MCH 32 pg (28-32) 06/24/22 10:25 MCHC 34 % (32-34) 06/24/22 10:25 RDW 14.5 % (13.2-15.2) 06/24/22 10:25 Plt Count 217 K/mm3 (140-440) 06/24/22 10:25 Lymph % (Auto) 46.1 % (13.4-35.0) H 06/24/22 10:25 [place] % (Auto) 9.0 % (0.0-7.3) H 06/24/22 10:25 Eos % (Auto) 1.0 % (0.0-4.3) 06/24/22 10:25 Baso % (Auto) 1.1 % (0.0-1.8) 06/24/22 10:25 Lymph # (Auto) 3.0 K/mm3 (1.2-5.4) 06/24/22 10:25 [place] # (Auto) 0.6 K/mm3 (0.0-0.8) 06/24/22 10:25 Eos # (Auto) 0.1 K/mm3 (0.0-0.4) 06/24/22 10:25 Baso # (Auto) 0.1 K/mm3 (0.0-0.1) 06/24/22 10:25 Seg Neutrophils % 42.8 % (40.0-70.0) 06/24/22 10:25 Seg Neutrophils # 2.8 K/mm3 (1.8-7.7) 06/24/22 10:25 Sodium 139 mmol/L (137-145) 06/24/22 10:25 Potassium 3.6 mmol/L (3.6-5.0) 06/24/22 10:25 Chloride 106.0 mmol/L (98-107) 06/24/22 10:25 Carbon Dioxide 19 mmol/L (22-30) L 06/24/22 10:25 Anion Gap 18 mmol/L 06/24/22 10:25 BUN 7 mg/dL (9-20) L 06/24/22 10:25 Creatinine 0.6 mg/dL (0.8-1.3) L 06/24/22 10:25 Estimated GFR > 60 ml/min 06/24/22 10:25 BUN/Creatinine Ratio 12 % 06/24/22 10:25 Glucose 107 mg/dL (75-100) H 06/24/22 10:25 Hemoglobin A1c 4.9 % (4-6) 06/24/22 10:25 Calcium 9.5 mg/dL (8.4-10.2) 06/24/22 10:25 Total Bilirubin 0.40 mg/dL (0.1-1.2) 06/24/22 10:25 AST 14 units/L (5-40) 06/24/22 10:25 ALT 21 units/L (7-56) 06/24/22 10:25 Alkaline Phosphatase 66 units/L (35-129) 06/24/22 10:25 Troponin T < 0.010 ng/mL (0.00-0.029) 06/25/22 09:43 Total Protein 6.2 g/dL (6.3-8.2) L 06/24/22 10:25 Albumin 4.2 g/dL (3.9-5) 06/24/22 10:25 Albumin/Globulin Ratio 2.1 % 06/24/22 10:25 Triglycerides 63 mg/dL (2-149) 06/24/22 10:25 Cholesterol 162 mg/dL (50-199) 06/24/22 10:25 LDL Cholesterol Direct 95 mg/dL (50-130) 06/24/22 10:25 HDL Cholesterol 59 mg/dL (40-59) 06/24/22 10:25 Cholesterol/HDL Ratio 2.74 % 06/24/22 10:25 TSH 0.470 mlU/mL (0.270-4.200) 06/24/22 10:25 [place]/IV: Voiding Method Toilet Active Medications - Current Medications Current Medications: Generic Name Dose Route Start Last Admin Trade Name Freq PRN Reason Stop Dose Admin Aripiprazole 10 mg 06/26/22 10:00 06/30/22 09:41 Aripiprazole 10 Mg Tab PO 10 mg QDAY JENNI Administration Fentanyl 1 applic 06/25/22 17:00 Fentanyl 12 Mcg/Hr Patch 72hr TD Q72HR JENNI Gabapentin 600 mg 06/25/22 10:30 06/30/22 06:12 Gabapentin 300 Mg Cap PO 600 mg Q8HR JENNI Administration Hydroxyzine Pamoate 25 mg 06/26/22 09:37 Hydroxyzine Pamoate 25 Mg Cap PO Q6H PRN Anxiety Melatonin 5 mg 06/25/22 11:01 06/29/22 22:01 Melatonin 5 Mg Tab PO 5 mg QHS PRN Administration Sleep Ondansetron HCl 8 mg 06/25/22 16:26 Ondansetron 8 Mg Odt Tab PO QID PRN Nausea Oxycodone HCl 20 mg 06/25/22 10:30 06/30/22 06:43 Oxycodone 5 Mg Tab PO 20 mg Q6H PRN Administration Pain, Moderate (4-6) Sertraline HCl 25 mg 06/26/22 10:00 06/30/22 09:41 Sertraline 25 Mg Tab PO 25 mg QDAY JENNI Administration Trazodone HCl 50 mg 06/25/22 22:00 06/29/22 22:01 Trazodone 50 Mg Tab PO 50 mg QHS JENNI Administration Nutrition/Malnutrition Assess - Dietary Evaluation Nutrition/Malnutrition Findings: Nutrition Notes Start: 06/25/22 13:03 Freq: Status: Active Protocol: Document 06/25/22 13:03 RADHA (Rec: 06/25/22 13:07 RADHA [id number]) Nutrition Notes Need for Assessment generated from: Low BMI Initial or Follow up Assessment Other Pertinent Diagnosis Suicidal ideation, depression, anxiety, PTSD Current Diet Regular Labs/Tests Reviewed Pertinent Medications Reviewed Height 5 ft 10 in Weight 45.3 kg [place] Body Weight (kg) 75.45 BMI 14.3 Weight Status Underweight Subjective/Other Information Pt screened for low BMI. He consumed 63% of lunch today. No recent wt changes per MD H& P. Burn Absent Trauma Absent Current % PO Fair (50-74%) Minimum of two criteria No #1 Nutrition Diagnosis Underweight Etiology hx of depression, insomnia As Evidenced by Signs and Symptoms BMI 14.3 Is patient on ventilator? No Is Patient Ambulatory and/or Out of Bed Yes REE-([place]. or-ambulatory/OOB) [ 1637.025 [id number]] Kcal/Kg value to use for calculation 45 Approximate Energy Requirements Using 9 kcal/Kg Calculation Used for Recommendations Kcal/kg Additional Notes Pro needs 1.2-1.5g/k-68g/ day Fluid needs 1ml/kcal Nutrition Intervention Change Diet Order: Continue current diet order Add Supplement/Snack (indicate name/kcal Ensure High Protein BID /protein ) Provides kCal: 320 Provides Protein (gm) 32 Goal #1 PO intake of meals plus ONS to meet 100% energy and pro needs Goal #2 Wt maintenance and/or gain Anticipated Discharge Needs: High-calorie/high-protein diet ; 1-2 ONS daily for wt maintenance Follow-Up By: 07/02/22 Additional Comments F/U: intakes, wt
== END 2022-06-30 15:15 | disposition home or self-care (01) | DRG 885 ==
LOC: 3A 17:02 → UNDOADMIN 17:02 → 5A 06-25 01:17
PROVIDERS: ADMIT Psychiatry & Neurology Psychiatry; ATTEND Psychiatry & Neurology Psychiatry
DX: F20.9 Schizophrenia, unspecified (principal); E44.0 Moderate protein-calorie malnutrition; Z68.1 Body mass index [BMI] 19.9 or less, adult; R45.851 Suicidal ideations; F11.20 Opioid dependence, uncomplicated; F41.9 Anxiety disorder, unspecified; F43.10 Post-traumatic stress disorder, unspecified; F01.51 Vascular dementia, unspecified severity, with behavioral disturbance; I67.2 Cerebral atherosclerosis; F31.9 Bipolar disorder, unspecified; Z95.0 Presence of cardiac pacemaker; Z86.73 Personal history of transient ischemic attack (TIA), and cerebral infarction without residual deficits; G89.4 Chronic pain syndrome
CPT/HCPCS: 36415; 80048; 80053; 80061; 80307; 80320; 81001; 83036; 84443; 84484; 85025; 99283; G0378; G0480; U0003

== ENCOUNTER 2022-07-14 18:46 | Emergency (ER) | payer MEDICAID ==
--- NOTE | 2022-07-14 20:22 | Emergency Department Report ---
ED General Adult HPI - General Chief complaint: Psych Stated complaint: SUICIDAL IDEATIONS Time Seen by Provider: 07/14/22 20:18 Source: patient, EMS Mode of arrival: Ambulatory Limitations: No Limitations - History of Present Illness Initial comments: Patient presents to the emergency department for suicidal ideations. Patient states that he is homeless and has nowhere to go. Patient has a plan of how he would commit suicide. Patient states he was just released from [facility] for the same complaint. -: unknown Severity scale (0 -10): 0 Consistency: constant Improves with: none Worsens with: none Associated Symptoms: denies other symptoms Treatments Prior to Arrival: none - Related Data Home Medications Medication Instructions Recorded Confirmed Last Taken Oxycodone HCl [oxyCODONE] 20 mg PO Q6H PRN 11/13/21 06/26/22 Unknown fentaNYL [Fentanyl] 75 mg TRANSDERMA Q72HR 11/13/21 06/26/22 Unknown Previous Rx's Medication Instructions Recorded Last Taken Type ARIPiprazole 5 mg PO QDAY 30 Days #30 tablet 11/17/21 Unknown Rx DULoxetine [Cymbalta] 60 mg PO BID 30 Days #60 capsule 11/17/21 Unknown Rx Melatonin [Melatonin 5MG TAB] 5 mg PO QHS PRN tablet 11/17/21 Unknown Rx Venlafaxine [Effexor] 75 mg PO QDAY 30 Days #30 tablet 11/17/21 Unknown Rx Ondansetron [Zofran ODT TAB] 8 mg PO QID PRN #20 tab.rapdis 11/30/21 Unknown Rx ARIPiprazole [Abilify TAB] 10 mg PO QDAY 30 Days #30 tablet 06/30/22 Unknown Rx Gabapentin 600 mg PO Q8HR 30 Days #60 capsule 06/30/22 Unknown Rx Sertraline [Zoloft] 25 mg PO QDAY 30 Days #30 tablet 06/30/22 Unknown Rx traZODone [Desyrel] 50 mg PO QHS 30 Days #30 tablet 06/30/22 Unknown Rx Allergies Allergy/AdvReac Type Severity Reaction Status Date / Time No Known Allergies Allergy Verified 07/14/22 19:09 ED Review of Systems ROS: Stated complaint: SUICIDAL IDEATIONS Other details as noted in HPI Comment: All other systems reviewed and negative Constitutional: denies: chills, fever Eyes: denies: eye pain, eye discharge, vision change ENT: denies: ear pain, throat pain Respiratory: denies: cough, shortness of breath, wheezing Cardiovascular: denies: chest pain, palpitations Endocrine: no symptoms reported Gastrointestinal: denies: abdominal pain, nausea, diarrhea Genitourinary: denies: urgency, dysuria Musculoskeletal: denies: back pain, joint swelling, arthralgia Skin: denies: rash, lesions Neurological: denies: headache, weakness, paresthesias Psychiatric: suicidal thoughts. denies: anxiety, depression, auditory hallucinations, visual hallucinations, homicidal thoughts Hematological/Lymphatic: denies: easy bleeding, easy bruising ED Past Medical Hx - Past Medical History Hx Hypertension: Yes Hx Congestive Heart Failure: No Hx Diabetes: No Hx Liver Disease: Yes (hepatitis c) Hx Renal Disease: Yes Hx Arthritis: Yes Hx Seizures: Yes Hx Psychiatric Treatment: Yes (Mltple hospitalizations at [facility]) Hx Asthma: No Hx COPD: No Additional medical history: bradycardia. chronic pain. concussion. bladder emptying issues. bronchitis - Surgical History Hx Pacemaker: Yes Additional Surgical History: right knee and ankle surgery. bacterial infection throat sgx [place]. - Social History Smoking Status: Former Smoker Substance Use Type: None - Medications Home Medications: Home Medications Medication Instructions Recorded Confirmed Last Taken Type Oxycodone HCl [oxyCODONE] 20 mg PO Q6H PRN 11/13/21 06/26/22 Unknown History fentaNYL [Fentanyl] 75 mg TRANSDERMA Q72HR 11/13/21 06/26/22 Unknown History ARIPiprazole 5 mg PO QDAY 30 Days #30 tablet 11/17/21 06/26/22 Unknown Rx DULoxetine [Cymbalta] 60 mg PO BID 30 Days #60 capsule 11/17/21 06/26/22 Unknown Rx Melatonin [Melatonin 5MG TAB] 5 mg PO QHS PRN tablet 11/17/21 06/26/22 Unknown Rx Venlafaxine [Effexor] 75 mg PO QDAY 30 Days #30 tablet 11/17/21 06/26/22 Unknown Rx Ondansetron [Zofran ODT TAB] 8 mg PO QID PRN #20 tab.rapdis 11/30/21 06/26/22 Unknown Rx ARIPiprazole [Abilify TAB] 10 mg PO QDAY 30 Days #30 tablet 06/30/22 Unknown Rx Gabapentin 600 mg PO Q8HR 30 Days #60 capsule 06/30/22 Unknown Rx Sertraline [Zoloft] 25 mg PO QDAY 30 Days #30 tablet 06/30/22 Unknown Rx traZODone [Desyrel] 50 mg PO QHS 30 Days #30 tablet 06/30/22 Unknown Rx ED Physical Exam - General Limitations: No Limitations General appearance: alert, in no apparent distress - Head Head exam: Present: atraumatic, normocephalic - Eye Eye exam: Present: normal appearance, PERRL, EOMI - ENT ENT exam: Present: mucous membranes moist - Neck Neck exam: Present: normal inspection - Respiratory Respiratory exam: Present: normal lung sounds bilaterally. Absent: respiratory distress - Cardiovascular Cardiovascular Exam: Present: regular rate, normal rhythm. Absent: systolic murmur, diastolic murmur, rubs, gallop - GI/Abdominal GI/Abdominal exam: Present: soft, normal bowel sounds. Absent: distended, tenderness - Rectal Rectal exam: Present: deferred - Extremities Exam Extremities exam: Present: normal inspection - Back Exam Back exam: Present: normal inspection - Neurological Exam Neurological exam: Present: alert, oriented X3, CN II-XII intact. Absent: motor sensory deficit - Psychiatric Psychiatric exam: Present: normal affect, normal mood - Skin Skin exam: Present: warm, dry, intact, normal color. Absent: rash ED Course Vital Signs 07/14/22 07/14/22 07/14/22 18:46 21:53 21:58 Temperature 98.1 F 98.2 F Pulse Rate 100 H 85 Respiratory 18 18 Rate Blood Pressure 131/93 127/86 [Left] O2 Sat by Pulse 98 97 96 Oximetry ED Medical Decision Making - Lab Data Result diagrams: 07/14/22 21:11 07/14/22 21:11 Lab Results 07/14/22 07/14/22 07/14/22 Range/Units 21:11 21:11 21:11 WBC 7.0 (4.5-11.0) K/mm3 RBC 4.11 (3.65-5.03) M/mm3 Hgb 13.3 (11.8-15.2) gm/dl Hct 40.4 (35.5-45.6) % MCV 98 H (84-94) fl MCH 32 (28-32) pg MCHC 33 (32-34) % RDW 15.0 (13.2-15.2) % Plt Count 198 (140-440) K/mm3 Lymph % (Auto) 48.8 H (13.4-35.0) % [place] % (Auto) 8.0 H (0.0-7.3) % Eos % (Auto) 4.0 (0.0-4.3) % Baso % (Auto) 0.9 (0.0-1.8) % Lymph # (Auto) 3.4 (1.2-5.4) K/mm3 [place] # (Auto) 0.6 (0.0-0.8) K/mm3 Eos # (Auto) 0.3 (0.0-0.4) K/mm3 Baso # (Auto) 0.1 (0.0-0.1) K/mm3 Seg Neutrophils % 38.3 L (40.0-70.0) % Seg Neutrophils # 2.7 (1.8-7.7) K/mm3 Sodium 145 (137-145) mmol/L Potassium 3.9 (3.6-5.0) mmol/L Chloride 109.2 H (98-107) mmol/L Carbon Dioxide 24 (22-30) mmol/L Anion Gap 16 mmol/L BUN 12 (9-20) mg/dL Creatinine 0.8 (0.8-1.3) mg/dL Estimated GFR > 60 ml/min BUN/Creatinine Ratio 15 % Glucose 103 H (75-100) mg/dL Calcium 9.9 (8.4-10.2) mg/dL Total Bilirubin 0.20 (0.1-1.2) mg/dL AST 19 (5-40) units/L ALT 17 (7-56) units/L Alkaline Phosphatase 69 (35-129) units/L Total Protein 6.9 (6.3-8.2) g/dL Albumin 4.6 (3.9-5) g/dL Albumin/Globulin Ratio 2.0 % TSH 2.330 (0.270-4.200) mlU/mL Salicylates (2.8-20.0) mg/dL Acetaminophen (10.0-30.0) ug/mL Plasma/Serum Alcohol (0-0.07) % 07/14/22 07/14/22 07/14/22 Range/Units 21:11 21:11 21:11 WBC (4.5-11.0) K/mm3 RBC (3.65-5.03) M/mm3 Hgb (11.8-15.2) gm/dl Hct (35.5-45.6) % MCV (84-94) fl MCH (28-32) pg MCHC (32-34) % RDW (13.2-15.2) % Plt Count (140-440) K/mm3 Lymph % (Auto) (13.4-35.0) % [place] % (Auto) (0.0-7.3) % Eos % (Auto) (0.0-4.3) % Baso % (Auto) (0.0-1.8) % Lymph # (Auto) (1.2-5.4) K/mm3 [place] # (Auto) (0.0-0.8) K/mm3 Eos # (Auto) (0.0-0.4) K/mm3 Baso # (Auto) (0.0-0.1) K/mm3 Seg Neutrophils % (40.0-70.0) % Seg Neutrophils # (1.8-7.7) K/mm3 Sodium (137-145) mmol/L Potassium (3.6-5.0) mmol/L Chloride (98-107) mmol/L Carbon Dioxide (22-30) mmol/L Anion Gap mmol/L BUN (9-20) mg/dL Creatinine (0.8-1.3) mg/dL Estimated GFR ml/min BUN/Creatinine Ratio % Glucose (75-100) mg/dL Calcium (8.4-10.2) mg/dL Total Bilirubin (0.1-1.2) mg/dL AST (5-40) units/L ALT (7-56) units/L Alkaline Phosphatase (35-129) units/L Total Protein (6.3-8.2) g/dL Albumin (3.9-5) g/dL Albumin/Globulin Ratio % TSH (0.270-4.200) mlU/mL Salicylates < 0.3 L (2.8-20.0) mg/dL Acetaminophen 5.0 L (10.0-30.0) ug/mL Plasma/Serum Alcohol < 0.01 (0-0.07) % - Medical Decision Making Mental health evaluation ordered Mental health evaluation completed Patient medically clear Awaiting psychiatric evaluation in the a.m. Critical care attestation.: If time is entered above; I have spent that time in minutes in the direct care of this critically ill patient, excluding procedure time. ED Disposition Clinical Impression: Suicidal ideations Disposition: 30 STILL A PATIENT Is pt being admited?: No Does the pt Need Aspirin: No Condition: Stable Referrals: CAITLIN VALDEZ MD [Primary Care Provider] - 3-5 Days
[2022-07-14 21:31] LABS: Basophils # (Auto) 0.1 K/mm3 (0.0-0.1); Basophils % (Auto) 0.9 % (0.0-1.8); Eosinophils # (Auto) 0.3 K/mm3 (0.0-0.4); Hematocrit 40.4 % (35.5-45.6); Hemoglobin 13.3 gm/dl (11.8-15.2); Lymphocytes # (Auto) 3.4 K/mm3 (1.2-5.4); Lymphocytes % (Auto) 48.8 % (13.4-35.0); Mean Corpuscular HGB Conc 33 % (32-34); Mean Corpuscular Volume 98 fl (84-94); Monocytes # (Auto) 0.6 K/mm3 (0.0-0.8); Platelet Count 198 K/mm3 (140-440); Red Blood Count 4.11 M/mm3 (3.65-5.03)
[2022-07-14 21:52] LABS: Alanine Aminotransferase 17 units/L (7-56); Albumin 4.6 g/dL (3.9-5); BUN/Creatinine Ratio 15; Blood Urea Nitrogen 12 mg/dL (9-20); Calcium 9.9 mg/dL (8.4-10.2); Hemolysis Index 4
--- NOTE | 2022-07-15 07:33 | Event Note ---
Date: 07/15/22 61yo undomiciled male, p/w suicidal ideation. Patient had no acute overnight events per nursing report. Pt was seen/evaluated by Dr. Boom Smith. this provider has medically cleared the patient. Vital signs stable. Pt continues to await formal disposition by psychiatry.
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
[2022-07-16 08:04] VITALS: BP 113/79
--- NOTE | 2022-07-16 10:47 | Progress Note ---
Subjective - Reason for Consult Consult date: 07/16/22 Reason for consult: withdrawal, depression - Chief Complaint Chief complaint: The patient was seen today. The patient says he came to the hospital because he "was on hospice, and was taken out of hospice and place in palliative care and does have medications." The patient says "I was not given any of my medications and I am going through withdrawals." The patient says "I need my psych meds and all my pain meds." He starts naming them "fentanyl, oxycodone, lorazepam, zoloft, trazodone, and mirtazepine." The patient denies SI/HI, but states "I need my pain meds. This is my source of problem. I didn't get any of my meds." He denies hallucinations. This patient would not benefit from inpatient psychiatric services, as his problems stem from housing issues, and chronic pain. He would better benefit from case management services. REVIEW OF SYSTEMS Constitutional: Negative for weight loss ENT: Negative for stridor Respiratory: Negative for cough or hemoptysis All other systems reviewed and are negative MENTAL STATUS General Appearance and Behavior: Age appropriate, wearing gown, polite with questioning, good eye contact Cooperation: Cooperative Psychomotor Behavior: within normal limits Mood: depressed Affect and affective range: Congruent with stated mood, agitated Thought Process: goal-oriented Thought Content: reality-based Speech: Normal volume and Regular rate and rhythm Suicidal Ideation: Denies Homicidal Ideation: Denies Hallucinations: denies Impulse Control: Intact Insight and Judgment: Fair Memory: Normal Attention: Attentive Orientation: Alert and oriented x3 ASSESSMENT Major Depressive Disorder Substance Use Disorder TREATMENT Please allow the patient to speak with case management Abilify 10 mg po daily starting today Sertraline 25 mg po qd trazodone 50 mg qhs PSYCHOTHERAPY: Supportive psychotherapy provided MEDICAL: Per primary team DELIRIUM PRECAUTIONS: Please re-orient patient frequently, keep lights on during the day, and minimize benzodiazepines and opiates as these medications could worsen patient's confusion. SHIP PILOT DISPATCHER: Defer to primary DISPOSITION: Do not Recommend acute inpatient psychiatric hospitalization at this time. Will sign off. Thanks Thank you for the consult. Please contact with any questions and/or concerns Case discussed with Dr. Martin who agrees with current disposition Mental Status Exam - Vital signs Last Vital Signs Temp 97.7 F 07/16/22 08:03 Pulse 73 07/16/22 08:03 Resp 16 07/16/22 08:03 BP 113/79 07/16/22 08:03 Pulse Ox 99 07/16/22 10:36
[2022-07-16 11:23] LABS: Color,Urine Straw (Yellow)
[2022-07-16 11:24] LABS: WBC,Urine < 1.0 /HPF (0.0-6.0)
[2022-07-16 11:37] LABS: Amphetamine Screen,Urine Negative; Benzodiazepines Screen,Urine Negative; Cannabinoid Screen,Urine Negative; Cocaine Screen,Urine Negative; Methadone Screen,Urine Negative; Opiate Screen,Urine Negative
== END 2022-07-16 20:48 | disposition home or self-care (01) ==
LOC: ED 18:46
DX: R45.851 Suicidal ideations (principal); Z20.822 Contact with and (suspected) exposure to COVID-19; I10 Essential (primary) hypertension; M19.90 Unspecified osteoarthritis, unspecified site; Z87.891 Personal history of nicotine dependence; Z79.899 Other long term (current) drug therapy
CPT/HCPCS: 36415; 80053; 80307; 81001; 84443; 85025; 99284; U0003; 80320; G0480